=== PATIENT | male | born 1945 | race Caucasian/White ===

== ENCOUNTER → 2018-07-02 | Outpatient (CLI) | payer OTHER | END | disposition home or self-care (01) | LOC: RAD 11:31 | PROVIDERS: ATTEND Family Medicine | DX: I70.292 Other atherosclerosis of native arteries of extremities, left leg (principal); M25.462 Effusion, left knee ==

== ENCOUNTER 2018-12-23 19:24 | Inpatient (IN) | payer OTHER, MEDICARE ==
[~2018-12-23] VITALS: Ht 177.8 cm; Wt 90.0 kg
[2018-12-25 12:28] VITALS: BP 144/78
== END 2018-12-25 16:20 | disposition home or self-care (01) | DRG 683 ==
LOC: ED 21:51 → EDIP 21:52 → 3NE 23:20 → DCLOUNGE 12-25 16:06
PROVIDERS: ADMIT Family Medicine; ATTEND Family Medicine
DX: N17.9 Acute kidney failure, unspecified (principal); K57.32 Diverticulitis of large intestine without perforation or abscess without bleeding; E78.00 Pure hypercholesterolemia, unspecified; E78.5 Hyperlipidemia, unspecified; E86.0 Dehydration; J44.9 Chronic obstructive pulmonary disease, unspecified; J84.10 Pulmonary fibrosis, unspecified; M10.9 Gout, unspecified; N18.3 Chronic kidney disease, stage 3 (moderate); I13.10 Hypertensive heart and chronic kidney disease without heart failure, with stage 1 through stage 4 chronic kidney disease, or unspecified chronic kidney disease; Z86.73 Personal history of transient ischemic attack (TIA), and cerebral infarction without residual deficits; I25.2 Old myocardial infarction; Z86.79 Personal history of other diseases of the circulatory system; Z87.891 Personal history of nicotine dependence; Z95.1 Presence of aortocoronary bypass graft; Z88.8 Allergy status to other drugs, medicaments and biological substances
CPT/HCPCS: 36415; 74176; 80048; 80053; 81003; 82570; 83690; 83735; 84100; 84300; 85025; 96365; 96375; G0378; J0696; J1644; J2405; J2270; J7030

== ENCOUNTER 2019-07-20 06:50 | Inpatient (IN) | payer MEDICARE, OTHER ==
[~2019-07-20] VITALS: Ht 180.3 cm; Wt 82.0 kg
[~2019-07-20 06:50] MED LIST: ALLO100T30 PO; AMLO10TA8 PO; ASPI-496 PO; CIPR500T87 PO; CLON0.1T22 PO; COLC0.6T37 PO; FENO145T19 PO; FURO40TA6 PO; METO-99 PO; METR500T PO; ONDA4TAB7 PO; ROSU10TA2 PO; ROSU40TA PO
--- NOTE | 2019-07-20 07:05 | NUR ---
PT C/O RESPIRATORY SYMPTOMS WITH WORK OF BREAKING, MASK IN PLACE ON PT PRIOR TO TRIAGE BUT NOT WEARING MASK. PT BROUGHT BACK TO TRIAGE AND EKG DONE IMMEDIATELY. INSTRUCTED TO STAY IN LOBBY SINCE PT HAS RESPIRATORY SYMPTOMS. OF PT CONCERNED ABOUT INABILITY OF PT TO COMMUNICATE WITH HX OF STROKES. PT ABLE TO COMMUNICATE ANSWERS TO QUESTIONS OF TRIAGE IF PROMPTED WITH LOUD VOICES. NOT ALLOWED BACK DUE TO ISOLATION OF PATIENTS WITH RESPIRATORY SYMPTOMS.
[2019-07-20] MEDS ORDERED: ASPIRIN 81 MG TABLET CHEW PO ONE (07:30)
[2019-07-20] MEDS ORDERED: ALBUTEROL/IPRATROPIUM 2.5MG/0.5MG, 3 ML NPPB ONE (07:30)
[2019-07-20] MEDS ORDERED: SODIUM CHLORIDE FLUSH 10ML SYR IVF ONE (07:30)
--- NOTE | 2019-07-20 07:30 | NUR ---
PT TACHIPNIC, SHALLOW BREATHING. ABLE TO SPEAK IN FULL SENTENCES. STRUGGLES WITH WORDS AND HAS DIFFICULTY ANSWERING SOME QUESTIONS.
[2019-07-20 07:37] LABS: MEAN CORPUSCULAR HEMOGLOBIN 34.5 pg (27.5-34.5); MEAN CORPUSCULAR HGB CONC 33.1 g/dL (33.2-36.2); MEAN CORPUSCULAR VOLUME 104.1 fL (81-97); MEAN PLATELET VOLUME 9.2 fL (7.4-10.4); PLATELET COUNT 267 x10^3/uL (130-400); RED BLOOD COUNT 4.02 x10^6/uL (4.38-5.82); RED CELL DISTRIBUTION WIDTH 14.9 % (9.4-14.8)
[2019-07-20 07:46] LABS: ALANINE AMINOTRANSFERASE 19 U/L (12-78); ALBUMIN 3.2 g/dL (3.4-5.0); ANION GAP 9 mmol/L (5-15); CHLORIDE 111 mmol/L (98-107); CREATININE 2.53 mg/dL (0.7-1.3)
[2019-07-20 07:51] LABS: ALKALINE PHOSPHATASE 59 U/L (45-117); BILIRUBIN,TOTAL 0.9 mg/dL (0.2-1.0); INTERNATIONAL NORMALIZED RATIO 0.99 (0.93-1.1); PROTHROMBIN TIME 10.5 Seconds (9.6-11.5); TOTAL PROTEIN 7.9 g/dL (6.4-8.2)
[2019-07-20 07:53] LABS: BASOPHILS # (AUTO) 0.06 x10^3/uL (0-0.1); BASOPHILS % (AUTO) 0 % (0-1); EOSINOPHILS # (AUTO) 0.21 x10^3/uL (0-0.4); EOSINOPHILS % (AUTO) 1 % (1-7); LYMPHOCYTES # (AUTO) 0.84 x10^3/uL (1-3.4); LYMPHOCYTES % (AUTO) 5 % (22-44); MD SCAN; MONOCYTES # (AUTO) 1.46 x10^3/uL (0.2-0.8); MONOCYTES % (AUTO) 8 % (2-9); NEUTROPHILS # (AUTO) 15.42 x10^3/uL (1.8-6.8); NEUTROPHILS % (AUTO) 86 % (42-75)
[2019-07-20] MEDS ORDERED: ASPIRIN 81 MG TABLET CHEW ONE (07:55)
[2019-07-20 07:56] LABS: TROPONIN I 0.697 ng/mL (0.000-0.045)
[2019-07-20] MEDS ORDERED: FUROSEMIDE 40 MG/4 ML IV ONE (08:30)
[2019-07-20] MEDS ORDERED: AZITHROMYCIN 500 MG in SODIUM CHLORIDE 0.9% 250 ML IVPB ONE (08:30)
[2019-07-20] MEDS ORDERED: CEFTRIAXONE PMX 1GM/50ML 50 ML IVPB ONE (08:30)
[2019-07-20] MEDS ORDERED: CEFTRIAXONE PMX 1GM/50ML 50 ML ONE (08:44)
--- NOTE | 2019-07-20 08:45 | NUR ---
AT BEDSIDE. AWARE OF INTENTION TO ADMIT. CONTINUE TO MONITOR PT
[2019-07-20] MEDS ORDERED: FUROSEMIDE 40 MG/4 ML ONE (08:51)
--- NOTE | 2019-07-20 09:00 | NUR ---
PT DISPLAYS SOB AND INCREASE IN HR WHEN UOB TO STAND AT GURNEY AND USE URINAL. SOB AND HR DECREASE AFTER BACK AT REST IN GURNEY
[2019-07-20] MEDS ORDERED: CLON0.1T22 PO (09:20)
--- NOTE | 2019-07-20 10:16 | NUR ---
HOSPITALIST AT BEDSIDE.
[2019-07-20] MEDS ORDERED: DOCUSATE 100 MG CAPSULE PO PRN (10:30)
[2019-07-20] MEDS ORDERED: ONDANSETRON 2MG/ML, 2ML IVPush PRN (10:30)
[2019-07-20] MEDS ORDERED: HEPARIN 5,000 UNITS/ML, 1ML SQ SCH (10:30)
[2019-07-20] MEDS ORDERED: NITROGLYCERIN 0.4 MG BOTTLE (25 TABS) SL PRN (10:30)
[2019-07-20] MEDS ORDERED: morphine SULFATE 10 MG/ML, 1ML IVPush PRN (10:30)
[2019-07-20] MEDS ORDERED: POLYETHYLENE GLYCOL 17 GM PACKET PO PRN (10:30)
[2019-07-20] MEDS ORDERED: ONDANSETRON ODT 4 MG PO PRN (10:30)
[2019-07-20] MEDS: CEFTRIAXONE PMX 1GM/50ML 50 ML IV SCH (10:37)
[2019-07-20] MEDS ORDERED: METOPROLOL TARTRATE 50 MG TAB ONE (10:51)
[2019-07-20] MEDS ORDERED: HEPARIN 5,000 UNITS/ML, 1ML ONE (10:51)
[2019-07-20] MEDS ORDERED: AMLODIPINE 5 MG TABLET ONE (10:51)
[2019-07-20] MEDS: METOPROLOL TARTRATE 100 MG TAB PO SCH ×2 (10:54→20:35)
[2019-07-20] MEDS: AMLODIPINE 10 MG TAB PO SCH (10:55)
--- NOTE | 2019-07-20 11:02 | NUR ---
BRIA [phone]
--- NOTE | 2019-07-20 11:07 | NUR ---
REPORT TO JIM SQUIRES PT TO BE TRANSPORTED TO FLOOR.
[2019-07-20] MEDS: ALLOPURINOL 100 MG TABLET PO SCH (11:20)
--- NOTE | 2019-07-20 11:29 | NUR ---
PT DIURESED 800 ML URINE SINCE GIVEN LASIX. TO FLOOR VIA GURNEY
[2019-07-20 11:51] VITALS: BP 141/88
[2019-07-20 12:08] VITALS: BP 141/88
[2019-07-20] MEDS ORDERED: AMLO10TA8 PO (12:34)
[2019-07-20] MEDS ORDERED: HEPARIN 5,000 UNITS/ML, 1ML IV ONE (15:00)
[2019-07-20] MEDS: HEPARIN 25,000 UNITS/250ML PMX 250 ML IV PRN (15:14)
[2019-07-20] MEDS: FUROSEMIDE 40 MG/4 ML IV SCH (18:22)
[2019-07-20 19:44] VITALS: BP 140/83
[2019-07-20] MEDS: (Rosuvastatin Calcium** (Crestor**) 40 MG) PO SCH (20:35)
[2019-07-20] MEDS: HEPARIN 5,000 UNITS/ML, 1ML IV PRN (23:55)
[2019-07-21 00:34] VITALS: BP 146/80
[2019-07-21] MEDS: ACETAMINOPHEN 325 MG TABLET PO PRN ×2 (04:58→22:02)
[2019-07-21 05:18] LABS: ANION GAP 8 mmol/L (5-15); CALCIUM 8.5 mg/dL (8.5-10.1); CHLORIDE 107 mmol/L (98-107); CREATININE 3.04 mg/dL (0.7-1.3)
[2019-07-21 06:08] LABS: BASOPHILS % (AUTO) 0 % (0-1); EOSINOPHILS # (AUTO) 0.56 x10^3/uL (0-0.4); EOSINOPHILS % (AUTO) 4 % (1-7); LYMPHOCYTES # (AUTO) 1.35 x10^3/uL (1-3.4); LYMPHOCYTES % (AUTO) 10 % (22-44); MD SCAN; MEAN CORPUSCULAR HEMOGLOBIN 34.7 pg (27.5-34.5); MEAN CORPUSCULAR HGB CONC 33.7 g/dL (33.2-36.2); MEAN CORPUSCULAR VOLUME 103.1 fL (81-97); MEAN PLATELET VOLUME 9.8 fL (7.4-10.4); MONOCYTES # (AUTO) 1.07 x10^3/uL (0.2-0.8); MONOCYTES % (AUTO) 8 % (2-9); NEUTROPHILS # (AUTO) 10.61 x10^3/uL (1.8-6.8); NEUTROPHILS % (AUTO) 78 % (42-75); PLATELET COUNT 245 x10^3/uL (130-400); RED BLOOD COUNT 3.39 x10^6/uL (4.38-5.82); RED CELL DISTRIBUTION WIDTH 14.9 % (9.4-14.8)
[2019-07-21 07:14] VITALS: BP 156/93
[2019-07-21] MEDS: ASPIRIN 81 MG TABLET EC PO SCH (08:03)
[2019-07-21] MEDS: FUROSEMIDE 40 MG/4 ML IV SCH ×2 (08:03→17:17)
[2019-07-21] MEDS: AMLODIPINE 10 MG TAB PO SCH (08:03)
[2019-07-21] MEDS: FENOFIBRATE 145 MG TABLET PO SCH (08:03)
[2019-07-21] MEDS: ALLOPURINOL 100 MG TABLET PO SCH (08:04)
[2019-07-21] MEDS ORDERED: METOPROLOL TARTRATE 50 MG TAB PO SCH (09:00)
[2019-07-21] MEDS ORDERED: AZITHROMYCIN 500 MG TABLET PO SCH (09:00)
[2019-07-21] MEDS ORDERED: CLOPIDOGREL 300 MG TABLET PO ONE (10:30)
[2019-07-21] MEDS: CEFTRIAXONE PMX 1GM/50ML 50 ML IV SCH (11:58)
[2019-07-21] MEDS: ISOSORBIDE DINITRATE 10 MG TABLET PO SCH ×3 (11:58→22:03)
[2019-07-21] MEDS: HEPARIN 5,000 UNITS/ML, 1ML IV PRN ×2 (13:14→22:03)
[2019-07-21] MEDS: HEPARIN 25,000 UNITS/250ML PMX 250 ML IV PRN (13:16)
[2019-07-21 13:48] VITALS: BP 121/62
[2019-07-21] MEDS: CARVEDILOL 12.5 MG TABLET PO SCH (17:17)
[2019-07-21 19:39] VITALS: BP 115/71
[2019-07-21] MEDS: (Rosuvastatin Calcium** (Crestor**) 40 MG) PO SCH (21:00)
[2019-07-21 21:58] VITALS: BP 136/75
[2019-07-22 00:26] VITALS: BP 114/67
[2019-07-22 04:32] LABS: BASOPHILS # (AUTO) 0.08 x10^3/uL (0-0.1); BASOPHILS % (AUTO) 1 % (0-1); EOSINOPHILS # (AUTO) 0.65 x10^3/uL (0-0.4); EOSINOPHILS % (AUTO) 6 % (1-7); LYMPHOCYTES # (AUTO) 1.32 x10^3/uL (1-3.4); LYMPHOCYTES % (AUTO) 12 % (22-44); MD NO; MEAN CORPUSCULAR HGB CONC 32.9 g/dL (33.2-36.2); MEAN CORPUSCULAR VOLUME 103.2 fL (81-97); MEAN PLATELET VOLUME 10.1 fL (7.4-10.4); MONOCYTES # (AUTO) 1.21 x10^3/uL (0.2-0.8); MONOCYTES % (AUTO) 11 % (2-9); NEUTROPHILS # (AUTO) 7.98 x10^3/uL (1.8-6.8); NEUTROPHILS % (AUTO) 71 % (42-75); PLATELET COUNT 239 x10^3/uL (130-400); RED BLOOD COUNT 3.39 x10^6/uL (4.38-5.82); RED CELL DISTRIBUTION WIDTH 14.8 % (9.4-14.8)
[2019-07-22 04:40] LABS: ANION GAP 10 mmol/L (5-15); CALCIUM 8.2 mg/dL (8.5-10.1); CHLORIDE 103 mmol/L (98-107)
[2019-07-22 06:44] VITALS: BP 127/70
[2019-07-22] MEDS: FUROSEMIDE 40 MG/4 ML IV SCH (06:46)
[2019-07-22] MEDS: CARVEDILOL 12.5 MG TABLET PO SCH ×2 (06:46→17:59)
[2019-07-22] MEDS: ALLOPURINOL 100 MG TABLET PO SCH (08:53)
[2019-07-22] MEDS: FENOFIBRATE 145 MG TABLET PO SCH (08:53)
[2019-07-22] MEDS: ASPIRIN 81 MG TABLET EC PO SCH (08:53)
[2019-07-22] MEDS: CLOPIDOGREL 75 MG TABLET PO SCH (08:53)
[2019-07-22] MEDS: AMLODIPINE 10 MG TAB PO SCH (08:58)
[2019-07-22] MEDS: ISOSORBIDE DINITRATE 10 MG TABLET PO SCH ×3 (08:58→21:50)
[2019-07-22 09:50] VITALS: BP 125/68
[2019-07-22] MEDS: HEPARIN 25,000 UNITS/250ML PMX 250 ML IV PRN (10:26)
[2019-07-22 13:49] VITALS: BP 118/66
[2019-07-22 15:41] LABS: MICROSCOPIC NOT IND
[2019-07-22 15:44] LABS: CULTURE INDICATED? NO
[2019-07-22 15:57] LABS: CREATININE,URINE RANDOM 51.1 mg/dL
[2019-07-22] MEDS ORDERED: CARVEDILOL 6.25 MG TABLET PO ONE (18:00)
[2019-07-22 20:22] VITALS: BP 123/63
[2019-07-22] MEDS: (Rosuvastatin Calcium** (Crestor**) 40 MG) PO SCH (21:00)
[2019-07-22 21:49] VITALS: BP 155/79
[2019-07-22] MEDS: ACETAMINOPHEN 325 MG TABLET PO PRN (21:49)
[2019-07-23 03:45] VITALS: BP 122/68
[2019-07-23] MEDS: CARVEDILOL 12.5 MG TABLET PO SCH ×2 (05:25→17:44)
[2019-07-23 05:26] VITALS: BP 127/70
[2019-07-23 05:42] LABS: BASOPHILS # (AUTO) 0.09 x10^3/uL (0-0.1); BASOPHILS % (AUTO) 1 % (0-1); EOSINOPHILS % (AUTO) 8 % (1-7); LYMPHOCYTES # (AUTO) 0.88 x10^3/uL (1-3.4); LYMPHOCYTES % (AUTO) 10 % (22-44); MD NO; MEAN CORPUSCULAR HEMOGLOBIN 34.2 pg (27.5-34.5); MEAN CORPUSCULAR HGB CONC 33.4 g/dL (33.2-36.2); MEAN CORPUSCULAR VOLUME 102.4 fL (81-97); MEAN PLATELET VOLUME 9.7 fL (7.4-10.4); MONOCYTES % (AUTO) 11 % (2-9); NEUTROPHILS # (AUTO) 5.92 x10^3/uL (1.8-6.8); NEUTROPHILS % (AUTO) 70 % (42-75); PLATELET COUNT 259 x10^3/uL (130-400); RED BLOOD COUNT 3.44 x10^6/uL (4.38-5.82); RED CELL DISTRIBUTION WIDTH 14.7 % (9.4-14.8)
[2019-07-23 05:51] LABS: ALBUMIN 2.6 g/dL (3.4-5.0); ANION GAP 11 mmol/L (5-15); CALCIUM 8.6 mg/dL (8.5-10.1); CHLORIDE 105 mmol/L (98-107); CREATININE 3.49 mg/dL (0.7-1.3); IRON LEVEL 28 mcg/dL (65-175)
[2019-07-23 05:55] LABS: % IRON SATURATION 11 % (20-55); TOTAL IRON BINDING CAPACITY 257 mcg/dL (250-450)
[2019-07-23 07:26] VITALS: BP 120/72
[2019-07-23] MEDS: ASPIRIN 81 MG TABLET EC PO SCH (08:47)
[2019-07-23] MEDS: ISOSORBIDE DINITRATE 10 MG TABLET PO SCH ×3 (08:47→20:55)
[2019-07-23] MEDS: CLOPIDOGREL 75 MG TABLET PO SCH (08:48)
[2019-07-23] MEDS: FENOFIBRATE 145 MG TABLET PO SCH (08:48)
[2019-07-23] MEDS: AMLODIPINE 10 MG TAB PO SCH (08:48)
[2019-07-23] MEDS: ALLOPURINOL 100 MG TABLET PO SCH (08:48)
[2019-07-23] MEDS: ACETAMINOPHEN 325 MG TABLET PO PRN ×2 (09:42→22:05)
[2019-07-23 12:30] VITALS: BP 92/57
[2019-07-23 13:01] VITALS: BP 147/70
[2019-07-23] MEDS ORDERED: ERGOCALCIFEROL 50,000 UNIT CAPSULE PO SCH (13:30)
[2019-07-23] MEDS: FERROUS SULFATE 325 MG TABLET PO SCH ×2 (13:30→17:44)
[2019-07-23] MEDS: HEPARIN 5,000 UNITS/ML, 1ML SQ SCH ×2 (15:17→23:16)
[2019-07-23 20:20] VITALS: BP 154/69
[2019-07-23] MEDS: (Rosuvastatin Calcium** (Crestor**) 40 MG) PO SCH (20:56)
[2019-07-24 01:40] VITALS: BP 134/81
[2019-07-24 05:37] LABS: BASOPHILS # (AUTO) 0.01 x10^3/uL (0-0.1); BASOPHILS % (AUTO) 0 % (0-1); EOSINOPHILS # (AUTO) 0.67 x10^3/uL (0-0.4); EOSINOPHILS % (AUTO) 8 % (1-7); LYMPHOCYTES # (AUTO) 0.99 x10^3/uL (1-3.4); LYMPHOCYTES % (AUTO) 13 % (22-44); MD NO; MEAN CORPUSCULAR HEMOGLOBIN 33.7 pg (27.5-34.5); MEAN CORPUSCULAR HGB CONC 33.1 g/dL (33.2-36.2); MEAN CORPUSCULAR VOLUME 101.7 fL (81-97); MEAN PLATELET VOLUME 10.3 fL (7.4-10.4); MONOCYTES # (AUTO) 0.85 x10^3/uL (0.2-0.8); MONOCYTES % (AUTO) 11 % (2-9); NEUTROPHILS # (AUTO) 5.42 x10^3/uL (1.8-6.8); NEUTROPHILS % (AUTO) 68 % (42-75); PLATELET COUNT 263 x10^3/uL (130-400); RED BLOOD COUNT 3.43 x10^6/uL (4.38-5.82); RED CELL DISTRIBUTION WIDTH 14.7 % (9.4-14.8)
[2019-07-24] MEDS: CARVEDILOL 12.5 MG TABLET PO SCH ×2 (05:37→18:32)
[2019-07-24 05:50] LABS: ALBUMIN 2.6 g/dL (3.4-5.0); ANION GAP 7 mmol/L (5-15); CHLORIDE 107 mmol/L (98-107)
[2019-07-24 05:52] LABS: CREATININE 3.11 mg/dL (0.7-1.3)
[2019-07-24 07:25] VITALS: BP 155/77
[2019-07-24] MEDS: AMLODIPINE 10 MG TAB PO SCH (07:55)
[2019-07-24] MEDS: ASPIRIN 81 MG TABLET EC PO SCH (07:55)
[2019-07-24] MEDS: HEPARIN 5,000 UNITS/ML, 1ML SQ SCH ×3 (07:55→23:01)
[2019-07-24] MEDS: FENOFIBRATE 145 MG TABLET PO SCH (07:55)
[2019-07-24] MEDS: CLOPIDOGREL 75 MG TABLET PO SCH (07:55)
[2019-07-24] MEDS: ALLOPURINOL 100 MG TABLET PO SCH (07:55)
[2019-07-24] MEDS: ISOSORBIDE DINITRATE 10 MG TABLET PO SCH ×3 (07:55→20:18)
[2019-07-24] MEDS ORDERED: REGADENOSON 0.4 MG/5 ML SYRINGE ONE (09:05)
[2019-07-24 13:55] VITALS: BP 158/84
[2019-07-24] MEDS: FERROUS SULFATE 325 MG TABLET PO SCH (17:03)
[2019-07-24 20:10] VITALS: BP_SYST 160; BP_SYST 166; BP_DIAS 80; BP_DIAS 84
[2019-07-24] MEDS: ACETAMINOPHEN 325 MG TABLET PO PRN (20:18)
[2019-07-24] MEDS: ATORVASTATIN 80 MG TABLET PO SCH (20:18)
[2019-07-25] VITALS (7 sets, daily range): BP systolic 137–160; BP diastolic 72–79
[2019-07-25 05:10] LABS: BASOPHILS # (AUTO) 0.02 x10^3/uL (0-0.1); BASOPHILS % (AUTO) 0 % (0-1); EOSINOPHILS # (AUTO) 0.41 x10^3/uL (0-0.4); EOSINOPHILS % (AUTO) 5 % (1-7); LYMPHOCYTES % (AUTO) 9 % (22-44); MD NO; MEAN CORPUSCULAR HEMOGLOBIN 33.5 pg (27.5-34.5); MEAN CORPUSCULAR HGB CONC 32.7 g/dL (33.2-36.2); MEAN CORPUSCULAR VOLUME 102.3 fL (81-97); MEAN PLATELET VOLUME 10.1 fL (7.4-10.4); MONOCYTES # (AUTO) 0.78 x10^3/uL (0.2-0.8); MONOCYTES % (AUTO) 9 % (2-9); NEUTROPHILS # (AUTO) 6.41 x10^3/uL (1.8-6.8); NEUTROPHILS % (AUTO) 77 % (42-75); PLATELET COUNT 277 x10^3/uL (130-400); RED BLOOD COUNT 3.45 x10^6/uL (4.38-5.82); RED CELL DISTRIBUTION WIDTH 14.5 % (9.4-14.8)
[2019-07-25 05:11] LABS: ALBUMIN 2.6 g/dL (3.4-5.0); ANION GAP 7 mmol/L (5-15); CHLORIDE 107 mmol/L (98-107)
[2019-07-25 05:14] LABS: CREATININE 2.76 mg/dL (0.7-1.3)
[2019-07-25] MEDS: HEPARIN 5,000 UNITS/ML, 1ML SQ SCH ×3 (06:18→21:55)
[2019-07-25] MEDS: CARVEDILOL 12.5 MG TABLET PO SCH ×2 (06:18→17:45)
[2019-07-25] MEDS: CLOPIDOGREL 75 MG TABLET PO SCH (09:21)
[2019-07-25] MEDS: AMLODIPINE 10 MG TAB PO SCH (09:21)
[2019-07-25] MEDS: ALLOPURINOL 100 MG TABLET PO SCH (09:21)
[2019-07-25] MEDS: ASPIRIN 81 MG TABLET EC PO SCH (09:21)
[2019-07-25] MEDS: ISOSORBIDE DINITRATE 10 MG TABLET PO SCH ×3 (09:21→21:54)
[2019-07-25] MEDS: FENOFIBRATE 145 MG TABLET PO SCH (09:22)
[2019-07-25] MEDS: FERROUS SULFATE 325 MG TABLET PO SCH (15:51)
[2019-07-25] MEDS: ACETAMINOPHEN 325 MG TABLET PO PRN ×2 (17:45→23:28)
[2019-07-25] MEDS: ATORVASTATIN 80 MG TABLET PO SCH (21:54)
[2019-07-26] VITALS: BP_SYST 137; BP_SYST 144; BP_DIAS 77; BP_DIAS 88
[2019-07-26 05:07] LABS: ALBUMIN 2.5 g/dL (3.4-5.0); ANION GAP 8 mmol/L (5-15); CALCIUM 9.1 mg/dL (8.5-10.1); CHLORIDE 109 mmol/L (98-107)
[2019-07-26 05:08] LABS: CREATININE 2.63 mg/dL (0.7-1.3)
[2019-07-26 05:35] VITALS: BP 137/74
[2019-07-26] MEDS: CARVEDILOL 12.5 MG TABLET PO SCH (05:38)
[2019-07-26] MEDS: HEPARIN 5,000 UNITS/ML, 1ML SQ SCH ×2 (05:39→15:02)
[2019-07-26 07:05] VITALS: BP 130/66
[2019-07-26] MEDS: AMLODIPINE 10 MG TAB PO SCH (08:21)
[2019-07-26] MEDS: ASPIRIN 81 MG TABLET EC PO SCH (08:21)
[2019-07-26] MEDS: CLOPIDOGREL 75 MG TABLET PO SCH (08:21)
[2019-07-26] MEDS: FENOFIBRATE 145 MG TABLET PO SCH (08:21)
[2019-07-26] MEDS: ALLOPURINOL 100 MG TABLET PO SCH (08:21)
[2019-07-26] MEDS: ISOSORBIDE DINITRATE 10 MG TABLET PO SCH ×2 (08:22→16:39)
[2019-07-26] MEDS ORDERED: CLOP75TA PO (09:26)
[2019-07-26] MEDS ORDERED: FERR-51 PO (09:26)
[2019-07-26] MEDS ORDERED: NITR0.4T28 SL (09:26)
[2019-07-26] MEDS ORDERED: ISOS10TA2 PO (09:26)
[2019-07-26] MEDS ORDERED: HYDR-3341 PO (09:26)
[2019-07-26] MEDS ORDERED: CARV12.52 PO (09:26)
[2019-07-26] MEDS ORDERED: ERGO500017 PO (09:26)
[2019-07-26] MEDS ORDERED: SODIUM BICARBONATE 650 MG TABLET PO SCH (11:00)
[2019-07-26 13:40] VITALS: BP 143/71
[2019-07-26] MEDS: FERROUS SULFATE 325 MG TABLET PO SCH (16:37)
== END 2019-07-26 16:59 | disposition home or self-care (01) | DRG 871 ==
LOC: ED 07:35 → EDIP 09:16 → 5SO 11:26
PROVIDERS: ADMIT Family Medicine; ATTEND Family Medicine
DX: A41.9 Sepsis, unspecified organism (principal); I21.3 ST elevation (STEMI) myocardial infarction of unspecified site; I50.21 Acute systolic (congestive) heart failure; J18.9 Pneumonia, unspecified organism; J96.21 Acute and chronic respiratory failure with hypoxia; E87.1 Hypo-osmolality and hyponatremia; E87.2 Acidosis; I13.0 Hypertensive heart and chronic kidney disease with heart failure and stage 1 through stage 4 chronic kidney disease, or unspecified chronic kidney disease; J44.0 Chronic obstructive pulmonary disease with (acute) lower respiratory infection; N17.9 Acute kidney failure, unspecified; D50.9 Iron deficiency anemia, unspecified; D53.9 Nutritional anemia, unspecified; E78.00 Pure hypercholesterolemia, unspecified; E78.5 Hyperlipidemia, unspecified; E86.0 Dehydration; I08.0 Rheumatic disorders of both mitral and aortic valves; Z88.8 Allergy status to other drugs, medicaments and biological substances; I69.320 Aphasia following cerebral infarction; I71.4 Abdominal aortic aneurysm, without rupture; I73.9 Peripheral vascular disease, unspecified; N18.3 Chronic kidney disease, stage 3 (moderate); M10.9 Gout, unspecified; I25.119 Atherosclerotic heart disease of native coronary artery with unspecified angina pectoris; Z86.79 Personal history of other diseases of the circulatory system; Z87.11 Personal history of peptic ulcer disease; Z87.891 Personal history of nicotine dependence; Z95.1 Presence of aortocoronary bypass graft
CPT/HCPCS: 36415; 36600; 71045; 76770; 78452; 80048; 80053; 80069; 81003; 82043; 82306; 82570; 82728; 82803; 83540; 83550; 83605; 83735; 83880; 83970; 84145; 84156; 84484; 84550; 85025; 85520; 85610; 85730; 87040; 93005; 93017; 93306; 96374; 96375; 99291; G0378; J0456; J0696; J1644; J1940; J2785; A9502; C9898; J7050

== ENCOUNTER 2020-03-05 17:24 | Inpatient (IN) | payer OTHER ==
[~2020-03-05] VITALS: Ht 177.8 cm; Wt 79.5 kg
[~2020-03-05 17:24] MED LIST changes: +AMLO-211 PO; -AMLO10TA8 PO; +CARV12.52 PO; +CLOP75TA PO; +ERGO500017 PO; +FERR-51 PO; +HYDR-3341 PO; +ISOS10TA2 PO; +NITR0.4T28 SL
[2020-03-05] MEDS ORDERED: ONDANSETRON 2MG/ML, 2ML ONE (18:27)
[2020-03-05] MEDS ORDERED: MORPHINE SULFATE 4 MG/ML, 1ML ONE ×2 (18:28→20:18)
[2020-03-05] MEDS: MORPHINE SULFATE 4 MG/ML, 1ML IVPush PRN ×2 (18:29→20:21)
[2020-03-05] MEDS ORDERED: ONDANSETRON 2MG/ML, 2ML IVPush ONE (18:30)
[2020-03-05 18:34] LABS: BASOPHILS % (AUTO) 1 % (0-1); EOSINOPHILS % (AUTO) 1 % (1-7); LYMPHOCYTES % (AUTO) 6 % (22-44); MEAN CORPUSCULAR HEMOGLOBIN 33.4 pg (27.5-34.5); MEAN CORPUSCULAR HGB CONC 31.8 g/dL (33.2-36.2); MEAN PLATELET VOLUME 9.8 fL (7.4-10.4); MONOCYTES % (AUTO) 7 % (2-9); NEUTROPHILS % (AUTO) 86 % (42-75); PLATELET COUNT 254 x10^3/uL (130-400); RED BLOOD COUNT 3.62 x10^6/uL (4.38-5.82); RED CELL DISTRIBUTION WIDTH 14.1 % (9.4-14.8)
[2020-03-05 18:36] LABS: MD NO
[2020-03-05 18:42] LABS: ALANINE AMINOTRANSFERASE 122 U/L (12-78); ALBUMIN 3.6 g/dL (3.4-5.0); ANION GAP 5 mmol/L (5-15); CALCIUM 9.1 mg/dL (8.5-10.1); CHLORIDE 108 mmol/L (98-107); CREATININE 3.25 mg/dL (0.7-1.3)
[2020-03-05 18:44] LABS: ALKALINE PHOSPHATASE 66 U/L (45-117); BILIRUBIN,TOTAL 2.1 mg/dL (0.2-1.0)
[2020-03-05] MEDS ORDERED: SODIUM CHLORIDE FLUSH 10ML SYR IVF ONE (19:00)
[2020-03-05] MEDS ORDERED: SODIUM CHLORIDE 0.9% 1,000ML IVBOLUS ONE (19:00)
--- NOTE | 2020-03-05 19:39 | NUR ---
PT TO CT
--- NOTE | 2020-03-05 20:29 | NUR ---
TASK RN: PT MEDICATED PER EMAR FOR CONTINUED PAIN, 02/13. FAMILY AT BEDSIDE. BP/SPO2/ECG MONITORING IN PLACE. SINUS ILANA ON MONITOR, 50'S. BP STABLE. PT AWARE OF NEED FOR UA. URINAL PROVIDED. REPORTS HE WILL TRY WHEN PAIN IS IMPROVED.
[2020-03-05] MEDS ORDERED: HYDROmorphone 1 MG/ML, 1ML INJ ONE (21:16)
[2020-03-05] MEDS: HYDROmorphone 2 MG/ML, 1ML IVPush PRN ×2 (21:18→21:39)
[2020-03-05] MEDS ORDERED: SODIUM CHLORIDE FLUSH 10ML SYR IVF PRN (21:30)
[2020-03-05 21:44] LABS: MICROSCOPIC AUTO
[2020-03-05] MEDS ORDERED: DOCUSATE 100 MG CAPSULE PO PRN (22:00)
[2020-03-05] MEDS ORDERED: OXYcodone IR 5MG TABLET PO PRN (22:00)
[2020-03-05] MEDS ORDERED: PROMETHAZINE 25 MG/ML, 1ML IM PRN (22:00)
[2020-03-05] MEDS ORDERED: ONDANSETRON 2MG/ML, 2ML IVPush PRN (22:00)
[2020-03-05] MEDS ORDERED: LABETALOL 5MG/ML, 20ML IVPush PRN (22:00)
[2020-03-05] MEDS ORDERED: ONDANSETRON ODT 4 MG PO PRN (22:00)
[2020-03-05] MEDS ORDERED: NITROGLYCERIN SINGLE TAB 0.4 MG SL PRN (22:00)
[2020-03-05] MEDS ORDERED: POLYETHYLENE GLYCOL 17 GM PACKET PO PRN (22:00)
[2020-03-05 22:21] LABS: FREE T4 (FREE THYROXINE) 0.96 ng/dL (0.76-1.46)
--- NOTE | 2020-03-05 22:28 | NUR ---
contact [facility]- [phone]
[2020-03-05 22:47] VITALS: BP 164/75
[2020-03-05] MEDS: LACTATED RINGERS 1,000 ML IV SCH (22:56)
[2020-03-05] MEDS: HEPARIN 5,000 UNITS/ML, 1ML SQ SCH (23:09)
[2020-03-05] MEDS: AMLODIPINE 10 MG TAB PO SCH (23:09)
[2020-03-06] VITALS (7 sets, daily range): BP systolic 101–173; BP diastolic 69–80
[2020-03-06] MEDS: morphine SULFATE 10 MG/ML, 1ML IVPush PRN ×5 (01:59→20:17)
[2020-03-06 05:30] LABS: BASOPHILS % (AUTO) 0 % (0-1); EOSINOPHILS % (AUTO) 0 % (1-7); LYMPHOCYTES % (AUTO) 3 % (22-44); MEAN CORPUSCULAR HEMOGLOBIN 33.8 pg (27.5-34.5); MEAN CORPUSCULAR HGB CONC 32.2 g/dL (33.2-36.2); MEAN PLATELET VOLUME 9.8 fL (7.4-10.4); MONOCYTES % (AUTO) 9 % (2-9); NEUTROPHILS % (AUTO) 88 % (42-75); PLATELET COUNT 203 x10^3/uL (130-400); RED BLOOD COUNT 3.41 x10^6/uL (4.38-5.82); RED CELL DISTRIBUTION WIDTH 14.1 % (9.4-14.8)
[2020-03-06 05:34] LABS: ALANINE AMINOTRANSFERASE 225 U/L (12-78); ALBUMIN 3.2 g/dL (3.4-5.0); ANION GAP 4 mmol/L (5-15); CALCIUM 8.7 mg/dL (8.5-10.1); CHLORIDE 111 mmol/L (98-107); CHOLESTEROL, TOTAL 118 mg/dL (140-239); CREATININE 2.92 mg/dL (0.7-1.3)
[2020-03-06 05:36] LABS: ALKALINE PHOSPHATASE 82 U/L (45-117); BILIRUBIN,TOTAL 5.1 mg/dL (0.2-1.0); CHOL/HDL RATIO 7.4; HDL CHOL % 14 % (26-37); HDL CHOLESTEROL (DIRECT) 16 mg/dL (40-60); LDL CHOLESTEROL,CALCULATED 65 mg/dL (54-169); LDL/HDL RATIO 4.1 (0.5-3.0); TOTAL PROTEIN 7.1 g/dL (6.4-8.2); TRIGLYCERIDES 186 mg/dL (50-200); VLDL CHOLESTEROL 37 mg/dL (0-25)
[2020-03-06] MEDS: CARVEDILOL 12.5 MG TABLET PO SCH ×2 (05:52→18:41)
[2020-03-06] MEDS: LACTATED RINGERS 1,000 ML IV SCH ×2 (05:52→13:30)
[2020-03-06 05:57] LABS: MD NO
[2020-03-06] MEDS: ALLOPURINOL 100 MG TABLET PO SCH (08:53)
[2020-03-06] MEDS: HEPARIN 5,000 UNITS/ML, 1ML SQ SCH ×3 (08:56→23:00)
[2020-03-06] MEDS ORDERED: PIPERACILLIN/TAZO/PMX 2.25GM 50 ML IVPB SCH (15:30)
[2020-03-06] MEDS: PIPERACILLIN/TAZO/PMX 2.25GM 50 ML IVPB SCH ×2 (18:37→23:51)
[2020-03-06] MEDS: ISOSORBIDE DINITRATE 10 MG TABLET PO SCH ×2 (19:59→21:00)
[2020-03-06] MEDS: AMLODIPINE 10 MG TAB PO SCH (20:02)
[2020-03-06] MEDS: ATORVASTATIN 80 MG TABLET PO SCH (20:02)
[2020-03-07 00:06] VITALS: BP 134/71
[2020-03-07] MEDS: PIPERACILLIN/TAZO/PMX 2.25GM 50 ML IVPB SCH ×4 (06:20→23:30)
[2020-03-07] MEDS: CARVEDILOL 12.5 MG TABLET PO SCH ×2 (06:20→17:23)
[2020-03-07] MEDS: HEPARIN 5,000 UNITS/ML, 1ML SQ SCH (06:24)
[2020-03-07 06:25] VITALS: BP 137/70
[2020-03-07 07:13] VITALS: BP 128/68
[2020-03-07 08:03] LABS: MEAN CORPUSCULAR HEMOGLOBIN 34.2 pg (27.5-34.5); MEAN CORPUSCULAR HGB CONC 32.9 g/dL (33.2-36.2); MEAN PLATELET VOLUME 9.4 fL (7.4-10.4); PLATELET COUNT 169 x10^3/uL (130-400); RED CELL DISTRIBUTION WIDTH 14.2 % (9.4-14.8)
[2020-03-07 08:16] LABS: ALANINE AMINOTRANSFERASE 187 U/L (12-78); ALBUMIN 2.5 g/dL (3.4-5.0); ANION GAP 7 mmol/L (5-15); CALCIUM 8.3 mg/dL (8.5-10.1); CHLORIDE 111 mmol/L (98-107); CREATININE 2.97 mg/dL (0.7-1.3)
[2020-03-07 08:18] LABS: ALKALINE PHOSPHATASE 87 U/L (45-117); BILIRUBIN,TOTAL 1.4 mg/dL (0.2-1.0)
[2020-03-07 08:32] LABS: MD YES
[2020-03-07 08:33] LABS: BAND#(MANUAL) 1.76 x10^3/uL; BANDS%(MANUAL) 7 % (0-7); LYMPHS% (MANUAL) 2 % (22-44); MONOS% (MANUAL) 4 % (2-9); SEG#(MANUAL) 21.84 x10^3/uL (1.8-6.8); SEGS% (MANUAL) 87 % (42-75)
[2020-03-07 08:34] LABS: <PLATELET ESTIMATE> ADEQUATE; <PLT MORPHOLOGY> NORMAL PLT MORPH; ANISOCYTOSIS 1+
[2020-03-07] MEDS: ASPIRIN 81 MG TABLET EC PO SCH (10:14)
[2020-03-07] MEDS: ALLOPURINOL 100 MG TABLET PO SCH (10:14)
[2020-03-07] MEDS: ISOSORBIDE DINITRATE 10 MG TABLET PO SCH ×3 (10:15→22:02)
[2020-03-07] MEDS: FENOFIBRATE 145 MG TABLET PO SCH (10:15)
[2020-03-07 12:53] VITALS: BP 128/72
[2020-03-07 20:10] VITALS: BP 132/69
[2020-03-07] MEDS: ATORVASTATIN 80 MG TABLET PO SCH (22:01)
[2020-03-07] MEDS: AMLODIPINE 10 MG TAB PO SCH (22:02)
[2020-03-08 00:05] VITALS: BP 108/63
[2020-03-08] MEDS: PIPERACILLIN/TAZO/PMX 2.25GM 50 ML IVPB SCH ×4 (05:53→23:28)
[2020-03-08] MEDS: CARVEDILOL 12.5 MG TABLET PO SCH ×2 (05:54→17:33)
[2020-03-08 07:04] VITALS: BP 134/62
[2020-03-08] MEDS: ISOSORBIDE DINITRATE 10 MG TABLET PO SCH ×3 (09:00→20:36)
[2020-03-08] MEDS ORDERED: CHLORHEXIDINE 15 ML UDC ONE (09:09)
[2020-03-08] MEDS ORDERED: FENTANYL PF 100 MCG/2ML ONE (09:17)
[2020-03-08] MEDS ORDERED: PROMETHAZINE 25 MG SUPP PR PRN (09:30)
[2020-03-08] MEDS ORDERED: OXYcodone 5 MG/5 ML ORAL.SOL UDC PO PRN (09:30)
[2020-03-08] MEDS ORDERED: HYDROmorphone 1 MG/ML, 1ML INJ IVPush PRN (09:30)
[2020-03-08] MEDS ORDERED: ACETAMINOPHEN 325 MG TABLET PO PRN (09:30)
[2020-03-08] MEDS ORDERED: LABETALOL 5MG/ML, 20ML IV PRN (09:30)
[2020-03-08] MEDS ORDERED: PROMETHAZINE 25 MG/ML, 1ML IVPush PRN (09:30)
[2020-03-08] MEDS ORDERED: hydrALAzine 20 MG/ML, 1ML IV PRN (09:30)
[2020-03-08] MEDS ORDERED: ONDANSETRON 2MG/ML, 2ML IVPush PRN (09:30)
[2020-03-08] MEDS ORDERED: ROCURONIUM 10MG/ML,5ML ONE (10:05)
[2020-03-08] MEDS ORDERED: CEFAZOLIN 1,000 MG ONE (10:05)
[2020-03-08] MEDS ORDERED: DEXAMETHASONE 4 MG/ML, 1ML ONE (10:05)
[2020-03-08] MEDS ORDERED: ONDANSETRON 2MG/ML, 2ML ONE (10:05)
[2020-03-08] MEDS ORDERED: GLYCOPYRROLATE 0.2MG/1ML, 5ML ONE (10:05)
[2020-03-08] MEDS ORDERED: NEOSTIGMINE 1 MG/ML, 10ML ONE (10:05)
[2020-03-08] MEDS ORDERED: PROPOFOL 10 MG/ML, 20ML ONE (10:05)
[2020-03-08] MEDS ORDERED: SUCCINYLCHOLINE 20 MG/ML, 10ML ONE (10:05)
[2020-03-08] MEDS ORDERED: OMNIPAQUE 350 MG/ML, 50 ML BOTTLE ONE (10:22)
[2020-03-08] MEDS: ALLOPURINOL 100 MG TABLET PO SCH (11:43)
[2020-03-08] MEDS: ASPIRIN 81 MG TABLET EC PO SCH (11:43)
[2020-03-08] MEDS: FENOFIBRATE 145 MG TABLET PO SCH (11:43)
[2020-03-08 12:27] VITALS: BP 138/101
[2020-03-08 13:19] LABS: ANION GAP 8 mmol/L (5-15); CALCIUM 8.4 mg/dL (8.5-10.1); CHLORIDE 108 mmol/L (98-107); CREATININE 3.28 mg/dL (0.7-1.3)
[2020-03-08 13:20] LABS: ALANINE AMINOTRANSFERASE 113 U/L (12-78); ALBUMIN 2.3 g/dL (3.4-5.0)
[2020-03-08 13:22] LABS: ALKALINE PHOSPHATASE 79 U/L (45-117); BILIRUBIN,TOTAL 0.9 mg/dL (0.2-1.0); TOTAL PROTEIN 6.2 g/dL (6.4-8.2)
[2020-03-08 13:32] LABS: BASOPHILS % (AUTO) 0 % (0-1); EOSINOPHILS % (AUTO) 1 % (1-7); LYMPHOCYTES % (AUTO) 4 % (22-44); MEAN CORPUSCULAR HEMOGLOBIN 33.4 pg (27.5-34.5); MEAN CORPUSCULAR HGB CONC 31.9 g/dL (33.2-36.2); MEAN PLATELET VOLUME 10.4 fL (7.4-10.4); MONOCYTES % (AUTO) 5 % (2-9); NEUTROPHILS % (AUTO) 90 % (42-75); PLATELET COUNT 168 x10^3/uL (130-400); RED BLOOD COUNT 2.85 x10^6/uL (4.38-5.82); RED CELL DISTRIBUTION WIDTH 14.6 % (9.4-14.8)
[2020-03-08 14:10] LABS: MD SCAN
[2020-03-08 15:50] VITALS: BP 143/72
[2020-03-08] MEDS: SODIUM CHLORIDE 0.9% 1,000 ML IV SCH ×2 (15:51→23:34)
[2020-03-08 19:32] VITALS: BP 131/72
[2020-03-08] MEDS: ATORVASTATIN 80 MG TABLET PO SCH (20:36)
[2020-03-08] MEDS: AMLODIPINE 10 MG TAB PO SCH (20:36)
[2020-03-09 01:40] VITALS: BP 124/64
[2020-03-09] MEDS ORDERED: ATROPINE SYRINGE 0.1 MG/ML, 10ML ONE (05:00)
[2020-03-09] MEDS ORDERED: EPINEPHRINE SYRINGE 0.1 MG/ML, 10ML ONE ×2 (05:00→06:46)
[2020-03-09 05:07] LABS: BASOPHILS % (AUTO) 1 % (0-1); EOSINOPHILS % (AUTO) 4 % (1-7); LYMPHOCYTES % (AUTO) 4 % (22-44); MEAN CORPUSCULAR HEMOGLOBIN 33.5 pg (27.5-34.5); MEAN CORPUSCULAR HGB CONC 32.4 g/dL (33.2-36.2); MONOCYTES % (AUTO) 5 % (2-9); NEUTROPHILS % (AUTO) 86 % (42-75); PLATELET COUNT 175 x10^3/uL (130-400); RED BLOOD COUNT 2.78 x10^6/uL (4.38-5.82); RED CELL DISTRIBUTION WIDTH 14.2 % (9.4-14.8)
[2020-03-09 05:11] LABS: MD NO
[2020-03-09 05:19] LABS: ALANINE AMINOTRANSFERASE 91 U/L (12-78); ANION GAP 6 mmol/L (5-15); CALCIUM 8.1 mg/dL (8.5-10.1); CHLORIDE 110 mmol/L (98-107); CREATININE 3.09 mg/dL (0.7-1.3)
[2020-03-09 05:22] LABS: ALKALINE PHOSPHATASE 86 U/L (45-117); BILIRUBIN,TOTAL 0.9 mg/dL (0.2-1.0)
[2020-03-09] MEDS: PIPERACILLIN/TAZO/PMX 2.25GM 50 ML IVPB SCH ×4 (05:39→23:35)
[2020-03-09] MEDS: CARVEDILOL 12.5 MG TABLET PO SCH (05:41)
[2020-03-09 05:42] VITALS: BP 105/59
[2020-03-09 06:46] LABS: BASOPHILS % (AUTO) 0 % (0-1); EOSINOPHILS % (AUTO) 4 % (1-7); LYMPHOCYTES % (AUTO) 9 % (22-44); MEAN CORPUSCULAR HEMOGLOBIN 33.7 pg (27.5-34.5); MEAN CORPUSCULAR HGB CONC 31.2 g/dL (33.2-36.2); MEAN PLATELET VOLUME 10.2 fL (7.4-10.4); MONOCYTES % (AUTO) 5 % (2-9); NEUTROPHILS % (AUTO) 81 % (42-75); PLATELET COUNT 186 x10^3/uL (130-400)
[2020-03-09 06:47] LABS: MD NO
[2020-03-09 06:59] LABS: ALANINE AMINOTRANSFERASE 113 U/L (12-78); ALBUMIN 1.9 g/dL (3.4-5.0); ANION GAP 13 mmol/L (5-15); CALCIUM 7.9 mg/dL (8.5-10.1); CHLORIDE 109 mmol/L (98-107); CREATININE 3.42 mg/dL (0.7-1.3)
[2020-03-09] MEDS ORDERED: CODE BLUE RESPONSE XX ONE (07:00)
[2020-03-09 07:03] LABS: ALKALINE PHOSPHATASE 86 U/L (45-117); BILIRUBIN,TOTAL 0.8 mg/dL (0.2-1.0); TOTAL PROTEIN 5.7 g/dL (6.4-8.2); TROPONIN I 0.293 ng/mL (0.000-0.045)
[2020-03-09] MEDS ORDERED: DEXTROSE 4 GM TAB.CHEW PO PRN (07:30)
[2020-03-09] MEDS ORDERED: FENTANYL PF 100 MCG/2ML IVPush PRN (07:30)
[2020-03-09] MEDS ORDERED: NOREPINEPHRINE 8 MG in SODIUM CHLORIDE 0.9% 242 ML IV PRN (07:30)
[2020-03-09] MEDS ORDERED: PHARMACY MAY ADJ FOR RENAL FX MC SCH (07:30)
[2020-03-09] MEDS ORDERED: ONDANSETRON 2MG/ML, 2ML IV PRN (07:30)
[2020-03-09] MEDS ORDERED: LIDOCAINE-MPF 1%, 2ML ENDO PRN (07:30)
[2020-03-09] MEDS ORDERED: GLUCAGON 1 MG IM PRN (07:30)
[2020-03-09] MEDS ORDERED: DEXTROSE 50%, 50ML SYRINGE IVPush PRN (07:30)
[2020-03-09] MEDS: ISOSORBIDE DINITRATE 10 MG TABLET PO SCH (08:56)
[2020-03-09] MEDS: ALLOPURINOL 100 MG TABLET PO SCH (09:02)
[2020-03-09] MEDS: ASPIRIN 81 MG TABLET EC PO SCH (09:02)
[2020-03-09] MEDS: FENOFIBRATE 145 MG TABLET PO SCH (09:02)
[2020-03-09] MEDS: SODIUM CHLORIDE FLUSH 10ML SYR IVF SCH ×2 (09:03→20:51)
[2020-03-09 12:33] LABS: TROPONIN I 0.596 ng/mL (0.000-0.045)
[2020-03-09] MEDS ORDERED: SODIUM CHLORIDE 0.9%, 500ML IVBOLUS ONE (13:30)
[2020-03-09] MEDS ORDERED: OXYcodone IR 5MG TABLET PO PRN (14:00)
[2020-03-09] MEDS: PROPOFOL 100 ML IV PRN ×2 (14:03→20:52)
[2020-03-09] MEDS: ISOSORBIDE DINITRATE 10 MG TABLET NG SCH ×2 (16:00→19:52)
[2020-03-09] MEDS: HEPARIN 5,000 UNITS/ML, 1ML SQ SCH (17:06)
[2020-03-09] MEDS: CARVEDILOL 12.5 MG TABLET NG SCH (17:42)
[2020-03-09] MEDS: PANTOPRAZOLE 40 MG IV IVPush SCH (18:15)
[2020-03-09 18:56] LABS: TROPONIN I 0.995 ng/mL (0.000-0.045)
[2020-03-09] MEDS: AMLODIPINE 10 MG TAB NG SCH (19:53)
[2020-03-09] MEDS: ATORVASTATIN 80 MG TABLET NG SCH (20:51)
[2020-03-10] MEDS: HEPARIN 5,000 UNITS/ML, 1ML SQ SCH ×3 (01:29→17:27)
[2020-03-10] MEDS: PROPOFOL 100 ML IV PRN ×4 (03:04→20:06)
[2020-03-10 04:00] VITALS: BP 104/47
[2020-03-10 04:49] LABS: BASOPHILS % (AUTO) 0 % (0-1); EOSINOPHILS % (AUTO) 4 % (1-7); LYMPHOCYTES % (AUTO) 6 % (22-44); MEAN CORPUSCULAR HEMOGLOBIN 34.2 pg (27.5-34.5); MEAN CORPUSCULAR HGB CONC 32.9 g/dL (33.2-36.2); MEAN PLATELET VOLUME 10.5 fL (7.4-10.4); MONOCYTES % (AUTO) 9 % (2-9); NEUTROPHILS % (AUTO) 81 % (42-75); PLATELET COUNT 168 x10^3/uL (130-400); RED BLOOD COUNT 2.51 x10^6/uL (4.38-5.82); RED CELL DISTRIBUTION WIDTH 14.3 % (9.4-14.8)
[2020-03-10 04:50] LABS: MD NO
[2020-03-10 04:56] LABS: ANION GAP 11 mmol/L (5-15); CALCIUM 8.2 mg/dL (8.5-10.1); CHLORIDE 113 mmol/L (98-107)
[2020-03-10 05:04] LABS: CREATININE 4.33 mg/dL (0.7-1.3)
[2020-03-10] MEDS: CARVEDILOL 12.5 MG TABLET NG SCH (05:13)
[2020-03-10] MEDS: PIPERACILLIN/TAZO/PMX 2.25GM 50 ML IVPB SCH ×3 (05:13→17:27)
[2020-03-10] MEDS ORDERED: SODIUM CHLORIDE 0.9% 1,000ML IVBOLUS ONE (07:00)
[2020-03-10] MEDS: ASPIRIN 81 MG TABLET CHEW PO/NG SCH (08:48)
[2020-03-10] MEDS: ALLOPURINOL 100 MG TABLET NG SCH (08:49)
[2020-03-10] MEDS: ISOSORBIDE DINITRATE 10 MG TABLET NG SCH ×3 (08:49→21:30)
[2020-03-10] MEDS: FENOFIBRATE 145 MG TABLET NG SCH (08:49)
[2020-03-10] MEDS: PANTOPRAZOLE 40 MG IV IVPush SCH (08:50)
[2020-03-10] MEDS: SODIUM CHLORIDE FLUSH 10ML SYR IVF SCH ×2 (08:51→21:30)
[2020-03-10 09:51] LABS: MICROSCOPIC AUTO
[2020-03-10 10:05] LABS: CREATININE,URINE RANDOM 81.5 mg/dL
[2020-03-10] MEDS: AMLODIPINE 10 MG TAB NG SCH (21:00)
[2020-03-10] MEDS: ATORVASTATIN 80 MG TABLET NG SCH (21:30)
[2020-03-11] MEDS: PIPERACILLIN/TAZO/PMX 2.25GM 50 ML IVPB SCH ×5 (00:10→23:07)
[2020-03-11] MEDS: PROPOFOL 100 ML IV PRN ×2 (00:32→05:52)
[2020-03-11] MEDS: HEPARIN 5,000 UNITS/ML, 1ML SQ SCH ×3 (00:43→16:44)
[2020-03-11 04:00] VITALS: BP 107/44
[2020-03-11 05:33] LABS: BASOPHILS % (AUTO) 1 % (0-1); EOSINOPHILS % (AUTO) 8 % (1-7); LYMPHOCYTES % (AUTO) 6 % (22-44); MEAN CORPUSCULAR HEMOGLOBIN 34.1 pg (27.5-34.5); MEAN CORPUSCULAR HGB CONC 32.8 g/dL (33.2-36.2); MONOCYTES % (AUTO) 10 % (2-9); NEUTROPHILS % (AUTO) 76 % (42-75); PLATELET COUNT 169 x10^3/uL (130-400); RED BLOOD COUNT 2.55 x10^6/uL (4.38-5.82); RED CELL DISTRIBUTION WIDTH 14.4 % (9.4-14.8)
[2020-03-11 05:37] LABS: MD NO
[2020-03-11 05:47] LABS: ANION GAP 11 mmol/L (5-15); CALCIUM 8.3 mg/dL (8.5-10.1); CHLORIDE 115 mmol/L (98-107)
[2020-03-11 05:49] LABS: CREATININE 4.72 mg/dL (0.7-1.3)
[2020-03-11] MEDS: PANTOPRAZOLE 40 MG IV IVPush SCH (08:46)
[2020-03-11] MEDS: SODIUM CHLORIDE FLUSH 10ML SYR IVF SCH ×2 (08:46→20:15)
[2020-03-11] MEDS: ISOSORBIDE DINITRATE 10 MG TABLET NG SCH ×3 (08:46→20:15)
[2020-03-11] MEDS: ALLOPURINOL 100 MG TABLET NG SCH (08:47)
[2020-03-11] MEDS: ASPIRIN 81 MG TABLET CHEW PO/NG SCH (08:47)
[2020-03-11] MEDS: FENOFIBRATE 145 MG TABLET NG SCH (08:48)
[2020-03-11] MEDS: AMLODIPINE 10 MG TAB NG SCH (20:15)
[2020-03-11] MEDS: ATORVASTATIN 80 MG TABLET NG SCH (20:16)
[2020-03-12] MEDS: HEPARIN 5,000 UNITS/ML, 1ML SQ SCH ×3 (02:04→17:52)
[2020-03-12 04:00] VITALS: BP 123/89
[2020-03-12 04:34] LABS: BASOPHILS % (AUTO) 1 % (0-1); EOSINOPHILS % (AUTO) 1 % (1-7); LYMPHOCYTES % (AUTO) 3 % (22-44); MEAN CORPUSCULAR HEMOGLOBIN 33.7 pg (27.5-34.5); MEAN CORPUSCULAR HGB CONC 32.5 g/dL (33.2-36.2); MEAN PLATELET VOLUME 10.5 fL (7.4-10.4); MONOCYTES % (AUTO) 7 % (2-9); NEUTROPHILS % (AUTO) 89 % (42-75); PLATELET COUNT 206 x10^3/uL (130-400); RED BLOOD COUNT 2.83 x10^6/uL (4.38-5.82); RED CELL DISTRIBUTION WIDTH 14.5 % (9.4-14.8)
[2020-03-12 04:39] LABS: ANION GAP 13 mmol/L (5-15); CALCIUM 8.5 mg/dL (8.5-10.1); CHLORIDE 114 mmol/L (98-107); CREATININE 4.91 mg/dL (0.7-1.3)
[2020-03-12 05:05] LABS: MD SCAN
[2020-03-12] MEDS: PIPERACILLIN/TAZO/PMX 2.25GM 50 ML IVPB SCH ×4 (05:20→23:22)
[2020-03-12] MEDS ORDERED: FUROSEMIDE 40 MG/4 ML IV ONE ×2 (06:30→10:00)
[2020-03-12] MEDS ORDERED: LINEZOLID PMX 600MG/300ML 300 ML IV SCH (08:00)
[2020-03-12] MEDS: PANTOPRAZOLE 40 MG IV IVPush SCH (10:02)
[2020-03-12] MEDS: ISOSORBIDE DINITRATE 10 MG TABLET NG SCH ×3 (10:03→21:33)
[2020-03-12] MEDS: ALLOPURINOL 100 MG TABLET NG SCH (10:04)
[2020-03-12] MEDS: ASPIRIN 81 MG TABLET CHEW PO/NG SCH (10:04)
[2020-03-12] MEDS: FENOFIBRATE 145 MG TABLET NG SCH (10:04)
[2020-03-12] MEDS: SODIUM CHLORIDE FLUSH 10ML SYR IVF SCH ×2 (10:05→21:29)
[2020-03-12] MEDS: VORICONAZOLE 200 MG TABLET PO SCH (15:34)
[2020-03-12] MEDS: ATORVASTATIN 80 MG TABLET NG SCH (21:30)
[2020-03-12] MEDS: morphine SULFATE 10 MG/ML, 1ML IVPush PRN (21:31)
[2020-03-12] MEDS: AMLODIPINE 10 MG TAB NG SCH (21:33)
[2020-03-13] MEDS: HEPARIN 5,000 UNITS/ML, 1ML SQ SCH ×3 (02:22→17:41)
[2020-03-13] MEDS: VORICONAZOLE 200 MG TABLET PO SCH (02:28)
[2020-03-13 05:00] VITALS: BP 111/59
[2020-03-13] MEDS: PIPERACILLIN/TAZO/PMX 2.25GM 50 ML IVPB SCH ×3 (05:13→21:16)
[2020-03-13 05:22] LABS: BASOPHILS % (AUTO) 1 % (0-1); EOSINOPHILS % (AUTO) 0 % (1-7); LYMPHOCYTES % (AUTO) 6 % (22-44); MD NO; MEAN CORPUSCULAR HEMOGLOBIN 33.9 pg (27.5-34.5); MEAN PLATELET VOLUME 9.7 fL (7.4-10.4); MONOCYTES % (AUTO) 8 % (2-9); NEUTROPHILS % (AUTO) 85 % (42-75); PLATELET COUNT 216 x10^3/uL (130-400); RED BLOOD COUNT 2.67 x10^6/uL (4.38-5.82); RED CELL DISTRIBUTION WIDTH 14.2 % (9.4-14.8)
[2020-03-13 05:35] LABS: ALANINE AMINOTRANSFERASE 56 U/L (12-78); ANION GAP 13 mmol/L (5-15); CALCIUM 8.6 mg/dL (8.5-10.1); CHLORIDE 109 mmol/L (98-107); CREATININE 4.26 mg/dL (0.7-1.3)
[2020-03-13 05:39] LABS: ALKALINE PHOSPHATASE 82 U/L (45-117); BILIRUBIN,TOTAL 1.2 mg/dL (0.2-1.0); TOTAL PROTEIN 6.6 g/dL (6.4-8.2)
[2020-03-13] MEDS: PANTOPRAZOLE 40 MG IV IVPush SCH (09:03)
[2020-03-13] MEDS: ALLOPURINOL 100 MG TABLET NG SCH (09:03)
[2020-03-13] MEDS: SODIUM CHLORIDE FLUSH 10ML SYR IVF SCH ×2 (09:04→21:16)
[2020-03-13] MEDS: ASPIRIN 81 MG TABLET CHEW PO/NG SCH (09:04)
[2020-03-13] MEDS: FENOFIBRATE 145 MG TABLET NG SCH (09:04)
[2020-03-13] MEDS: ISOSORBIDE DINITRATE 10 MG TABLET NG SCH ×3 (09:04→21:00)
[2020-03-13] MEDS: VORICONAZOLE 50 MG TABLET PO SCH (14:42)
[2020-03-13] MEDS ORDERED: PIPERACILLIN/TAZO 0.75 GM in SODIUM CHLORIDE 0.9% 50 ML IVPB PRN (15:00)
[2020-03-13] MEDS: morphine SULFATE 10 MG/ML, 1ML IVPush PRN (19:19)
[2020-03-13] MEDS: AMLODIPINE 10 MG TAB NG SCH (21:00)
[2020-03-13] MEDS: ATORVASTATIN 80 MG TABLET NG SCH (21:00)
[2020-03-14 04:00] VITALS: BP 114/59
[2020-03-14] MEDS: HEPARIN 5,000 UNITS/ML, 1ML SQ SCH ×3 (05:15→20:11)
[2020-03-14] MEDS: VORICONAZOLE 50 MG TABLET PO SCH ×2 (05:16→16:03)
[2020-03-14] MEDS: PIPERACILLIN/TAZO/PMX 2.25GM 50 ML IVPB SCH ×3 (05:16→20:07)
[2020-03-14 05:55] LABS: BASOPHILS % (AUTO) 1 % (0-1); EOSINOPHILS % (AUTO) 1 % (1-7); LYMPHOCYTES % (AUTO) 6 % (22-44); MEAN CORPUSCULAR HEMOGLOBIN 33.7 pg (27.5-34.5); MEAN CORPUSCULAR HGB CONC 32.9 g/dL (33.2-36.2); MONOCYTES % (AUTO) 8 % (2-9); NEUTROPHILS % (AUTO) 85 % (42-75); PLATELET COUNT 230 x10^3/uL (130-400); RED BLOOD COUNT 2.74 x10^6/uL (4.38-5.82); RED CELL DISTRIBUTION WIDTH 14.3 % (9.4-14.8)
[2020-03-14 06:03] LABS: ANION GAP 9 mmol/L (5-15); CALCIUM 8.7 mg/dL (8.5-10.1); CHLORIDE 109 mmol/L (98-107); CREATININE 3.84 mg/dL (0.7-1.3)
[2020-03-14 06:31] LABS: MD SCAN
[2020-03-14] MEDS: ISOSORBIDE DINITRATE 10 MG TABLET NG SCH ×3 (08:43→20:09)
[2020-03-14] MEDS: ASPIRIN 81 MG TABLET CHEW PO/NG SCH (08:43)
[2020-03-14] MEDS: PANTOPRAZOLE 40 MG IV IVPush SCH (08:43)
[2020-03-14] MEDS: ALLOPURINOL 100 MG TABLET NG SCH (08:43)
[2020-03-14] MEDS: SODIUM CHLORIDE FLUSH 10ML SYR IVF SCH ×2 (08:43→20:12)
[2020-03-14] MEDS: FENOFIBRATE 145 MG TABLET NG SCH (08:43)
[2020-03-14] MEDS: ATORVASTATIN 80 MG TABLET NG SCH (20:07)
[2020-03-14] MEDS: AMLODIPINE 10 MG TAB NG SCH (20:12)
[2020-03-15] MEDS: morphine SULFATE 10 MG/ML, 1ML IVPush PRN ×2 (00:30→15:37)
[2020-03-15] MEDS: VORICONAZOLE 50 MG TABLET PO SCH ×2 (03:00→15:37)
[2020-03-15 04:00] VITALS: BP 114/62
[2020-03-15] MEDS: PIPERACILLIN/TAZO/PMX 2.25GM 50 ML IVPB SCH ×3 (04:15→20:23)
[2020-03-15] MEDS: HEPARIN 5,000 UNITS/ML, 1ML SQ SCH ×3 (04:15→20:23)
[2020-03-15 04:46] LABS: BASOPHILS % (AUTO) 1 % (0-1); EOSINOPHILS % (AUTO) 1 % (1-7); LYMPHOCYTES % (AUTO) 4 % (22-44); MEAN CORPUSCULAR HEMOGLOBIN 33.7 pg (27.5-34.5); MEAN CORPUSCULAR HGB CONC 32.6 g/dL (33.2-36.2); MEAN PLATELET VOLUME 10.2 fL (7.4-10.4); MONOCYTES % (AUTO) 5 % (2-9); NEUTROPHILS % (AUTO) 90 % (42-75); PLATELET COUNT 231 x10^3/uL (130-400); RED BLOOD COUNT 2.63 x10^6/uL (4.38-5.82); RED CELL DISTRIBUTION WIDTH 14.5 % (9.4-14.8)
[2020-03-15 04:58] LABS: ANION GAP 10 mmol/L (5-15); CALCIUM 8.2 mg/dL (8.5-10.1); CHLORIDE 107 mmol/L (98-107); CREATININE 5.35 mg/dL (0.7-1.3)
[2020-03-15 06:00] LABS: MD SCAN
[2020-03-15] MEDS: ISOSORBIDE DINITRATE 10 MG TABLET NG SCH ×3 (09:48→20:03)
[2020-03-15] MEDS: SODIUM CHLORIDE FLUSH 10ML SYR IVF SCH ×2 (09:50→20:23)
[2020-03-15] MEDS: PANTOPRAZOLE 40 MG IV IVPush SCH (09:50)
[2020-03-15] MEDS: ALLOPURINOL 100 MG TABLET NG SCH (09:51)
[2020-03-15] MEDS: FENOFIBRATE 145 MG TABLET NG SCH (09:51)
[2020-03-15] MEDS: ASPIRIN 81 MG TABLET CHEW PO/NG SCH (09:51)
[2020-03-15] MEDS: AMLODIPINE 5 MG TABLET NG SCH (20:05)
[2020-03-15] MEDS: ATORVASTATIN 80 MG TABLET NG SCH (20:23)
[2020-03-16] MEDS: VORICONAZOLE 50 MG TABLET PO SCH ×2 (03:20→16:26)
[2020-03-16] MEDS: HEPARIN 5,000 UNITS/ML, 1ML SQ SCH ×3 (03:20→21:27)
[2020-03-16 03:42] VITALS: BP 112/58
[2020-03-16 04:46] LABS: BASOPHILS % (AUTO) 0 % (0-1); EOSINOPHILS % (AUTO) 1 % (1-7); LYMPHOCYTES % (AUTO) 4 % (22-44); MEAN CORPUSCULAR HEMOGLOBIN 33.6 pg (27.5-34.5); MEAN CORPUSCULAR HGB CONC 32.9 g/dL (33.2-36.2); MEAN PLATELET VOLUME 10.2 fL (7.4-10.4); MONOCYTES % (AUTO) 5 % (2-9); NEUTROPHILS % (AUTO) 90 % (42-75); PLATELET COUNT 273 x10^3/uL (130-400); RED BLOOD COUNT 2.75 x10^6/uL (4.38-5.82); RED CELL DISTRIBUTION WIDTH 14.4 % (9.4-14.8)
[2020-03-16] MEDS: PIPERACILLIN/TAZO/PMX 2.25GM 50 ML IVPB SCH ×3 (04:51→21:27)
[2020-03-16 04:56] LABS: MD NO
[2020-03-16] MEDS: ISOSORBIDE DINITRATE 10 MG TABLET NG SCH ×3 (09:05→21:41)
[2020-03-16] MEDS: SODIUM CHLORIDE FLUSH 10ML SYR IVF SCH ×2 (09:16→21:00)
[2020-03-16] MEDS: PANTOPRAZOLE 40 MG IV IVPush SCH (09:16)
[2020-03-16] MEDS: ASPIRIN 81 MG TABLET CHEW PO/NG SCH (09:16)
[2020-03-16] MEDS: ALLOPURINOL 100 MG TABLET NG SCH (09:16)
[2020-03-16] MEDS: FENOFIBRATE 145 MG TABLET NG SCH (09:16)
[2020-03-16 10:05] LABS: ALANINE AMINOTRANSFERASE 43 U/L (12-78); ALBUMIN 2.1 g/dL (3.4-5.0); ANION GAP 11 mmol/L (5-15); CALCIUM 8.6 mg/dL (8.5-10.1); CHLORIDE 108 mmol/L (98-107); CREATININE 4.49 mg/dL (0.7-1.3); TRIGLYCERIDES 128 mg/dL (50-200)
[2020-03-16 10:09] LABS: ALKALINE PHOSPHATASE 151 U/L (45-117); BILIRUBIN,TOTAL 0.8 mg/dL (0.2-1.0); PREALBUMIN 7.1 mg/dL (20.0-40.0); TOTAL PROTEIN 7.3 g/dL (6.4-8.2)
[2020-03-16] MEDS ORDERED: ALBUMIN HUMAN 25% 200 ML ONE (14:31)
[2020-03-16] MEDS: NOREPINEPHRINE 8 MG in SODIUM CHLORIDE 0.9% 242 ML IV PRN (14:34)
[2020-03-16] MEDS: FILTER, DISP 1.2 MICRON FOR TPN/PVN IV PRN (16:27)
[2020-03-16] MEDS ORDERED: FAT EMUL IV SCH ×2 (17:00)
[2020-03-16] MEDS ORDERED: TPN PER PHARMACY MC SCH (17:00)
[2020-03-16] MEDS ORDERED: DEXTROSE 50%, 50ML SYRINGE IVPush PRN (17:00)
[2020-03-16] MEDS ORDERED: DEXTROSE 10% 500 ML IV PRN (17:00)
[2020-03-16] MEDS ORDERED: [UNRECOGNIZED DRUG - OTHER] IV SCH ×2 (17:00)
[2020-03-16] MEDS ORDERED: AMINO ACID 10% IV SCH ×2 (17:00)
[2020-03-16] MEDS ORDERED: SMOF TPN IV SCH ×2 (17:00)
[2020-03-16] MEDS ORDERED: DEXTROSE 70% IV SCH ×2 (17:00)
[2020-03-16] MEDS: INSULIN REGULAR LOW DOSE Q6H X 48HRS SQ-INSULIN SCH (21:00)
[2020-03-16] MEDS: ATORVASTATIN 80 MG TABLET NG SCH (21:27)
[2020-03-16] MEDS: AMLODIPINE 5 MG TABLET NG SCH (21:41)
[2020-03-17] MEDS: INSULIN REGULAR LOW DOSE Q6H X 48HRS SQ-INSULIN SCH ×4 (03:45→21:20)
[2020-03-17 04:00] VITALS: BP 114/62
[2020-03-17 04:08] LABS: BASOPHILS % (AUTO) 0 % (0-1); EOSINOPHILS % (AUTO) 0 % (1-7); LYMPHOCYTES % (AUTO) 4 % (22-44); MEAN CORPUSCULAR HEMOGLOBIN 33.8 pg (27.5-34.5); MEAN PLATELET VOLUME 10.2 fL (7.4-10.4); MONOCYTES % (AUTO) 4 % (2-9); NEUTROPHILS % (AUTO) 91 % (42-75); PLATELET COUNT 247 x10^3/uL (130-400); RED BLOOD COUNT 2.56 x10^6/uL (4.38-5.82); RED CELL DISTRIBUTION WIDTH 14.5 % (9.4-14.8)
[2020-03-17 04:11] LABS: ANION GAP 9 mmol/L (5-15); CALCIUM 8.4 mg/dL (8.5-10.1); CHLORIDE 103 mmol/L (98-107); CREATININE 3.73 mg/dL (0.7-1.3)
[2020-03-17 04:15] LABS: PREALBUMIN 6.9 mg/dL (20.0-40.0)
[2020-03-17 04:19] LABS: MD NO
[2020-03-17] MEDS: PIPERACILLIN/TAZO/PMX 2.25GM 50 ML IVPB SCH ×3 (05:36→21:24)
[2020-03-17] MEDS: VORICONAZOLE 50 MG TABLET PO SCH (05:36)
[2020-03-17] MEDS: HEPARIN 5,000 UNITS/ML, 1ML SQ SCH ×3 (05:37→21:25)
[2020-03-17] MEDS: ALLOPURINOL 100 MG TABLET NG SCH (08:53)
[2020-03-17] MEDS: SODIUM CHLORIDE FLUSH 10ML SYR IVF SCH ×2 (08:54→21:17)
[2020-03-17] MEDS: PANTOPRAZOLE 40 MG IV IVPush SCH (08:54)
[2020-03-17] MEDS: FENOFIBRATE 145 MG TABLET NG SCH (08:54)
[2020-03-17] MEDS: ASPIRIN 81 MG TABLET CHEW PO/NG SCH (08:54)
[2020-03-17] MEDS: ISOSORBIDE DINITRATE 10 MG TABLET NG SCH ×3 (09:00→21:00)
[2020-03-17] MEDS ORDERED: ALBUMIN HUMAN 25% 100 ML ONE (09:07)
[2020-03-17] MEDS: ALBUMIN HUMAN 25% 100 ML IV PRN ×2 (09:14→11:35)
[2020-03-17] MEDS ORDERED: [UNRECOGNIZED DRUG - OTHER] IV SCH (17:00)
[2020-03-17] MEDS ORDERED: DEXTROSE 70% IV SCH (17:00)
[2020-03-17] MEDS ORDERED: AMINO ACID 10% IV SCH (17:00)
[2020-03-17] MEDS ORDERED: FAT EMUL IV SCH (17:00)
[2020-03-17] MEDS ORDERED: SMOF TPN IV SCH (17:00)
[2020-03-17] MEDS: AMLODIPINE 5 MG TABLET NG SCH (21:00)
[2020-03-17] MEDS: ATORVASTATIN 80 MG TABLET NG SCH (21:00)
[2020-03-17] MEDS: morphine SULFATE 10 MG/ML, 1ML IVPush PRN (21:36)
[2020-03-18] MEDS: INSULIN REGULAR LOW DOSE Q6H X 48HRS SQ-INSULIN SCH ×3 (03:00→15:00)
[2020-03-18 04:00] VITALS: BP 98/48
[2020-03-18] MEDS: PIPERACILLIN/TAZO/PMX 2.25GM 50 ML IVPB SCH ×3 (05:08→22:41)
[2020-03-18] MEDS: HEPARIN 5,000 UNITS/ML, 1ML SQ SCH ×3 (05:08→22:42)
[2020-03-18 05:15] LABS: BASOPHILS % (AUTO) 1 % (0-1); EOSINOPHILS % (AUTO) 1 % (1-7); LYMPHOCYTES % (AUTO) 5 % (22-44); MEAN CORPUSCULAR HGB CONC 32.8 g/dL (33.2-36.2); MONOCYTES % (AUTO) 5 % (2-9); NEUTROPHILS % (AUTO) 89 % (42-75); PLATELET COUNT 277 x10^3/uL (130-400); RED BLOOD COUNT 2.76 x10^6/uL (4.38-5.82); RED CELL DISTRIBUTION WIDTH 14.9 % (9.4-14.8)
[2020-03-18 05:27] LABS: ANION GAP 10 mmol/L (5-15); CALCIUM 8.8 mg/dL (8.5-10.1); CHLORIDE 100 mmol/L (98-107); MD NO
[2020-03-18 05:29] LABS: CREATININE 3.97 mg/dL (0.7-1.3)
[2020-03-18] MEDS ORDERED: MIDAZOLAM 1 MG/ML, 5ML ONE (07:55)
[2020-03-18] MEDS ORDERED: PROPOFOL 10 MG/ML, 100ML IV ONE (07:55)
[2020-03-18] MEDS ORDERED: ETOMIDATE 20 MG/10 ML ONE (07:55)
[2020-03-18] MEDS: ISOSORBIDE DINITRATE 10 MG TABLET NG SCH ×3 (09:00→21:00)
[2020-03-18] MEDS: NOREPINEPHRINE 8 MG in SODIUM CHLORIDE 0.9% 242 ML IV PRN ×2 (09:41→16:46)
[2020-03-18] MEDS ORDERED: PHARMACY MAY ADJ FOR RENAL FX MC SCH (10:00)
[2020-03-18] MEDS ORDERED: LIDOCAINE-MPF 1%, 2ML ENDO PRN (10:00)
[2020-03-18] MEDS: SODIUM CHLORIDE FLUSH 10ML SYR IVF SCH ×2 (10:05→21:00)
[2020-03-18] MEDS: PANTOPRAZOLE 40 MG IV IVPush SCH (10:13)
[2020-03-18] MEDS: FENOFIBRATE 145 MG TABLET NG SCH (10:13)
[2020-03-18] MEDS: ALLOPURINOL 100 MG TABLET NG SCH (10:14)
[2020-03-18] MEDS: ASPIRIN 81 MG TABLET CHEW PO/NG SCH (10:14)
--- NOTE | 2020-03-18 14:03 | NUR ---
TF per RD: - When medically appropriate to initiate TF, recommend Vital AF 1.2 @ 60mL/hr (w/ propofol) or 70ml/hr (off propofol). - Do not recommend initating TF until levophed <5mcg/min or <0.06 mcg/kg/min (CBW 71.7) per ASPEN enteral feeding guidelines. Addendum: 03/18/20 at [address] Amended: Links added.
[2020-03-18] MEDS: PROPOFOL 100 ML IV PRN (16:54)
[2020-03-18] MEDS: FILTER, DISP 1.2 MICRON FOR TPN/PVN IV PRN (16:57)
[2020-03-18] MEDS ORDERED: SMOF TPN IV SCH (17:00)
[2020-03-18] MEDS ORDERED: DEXTROSE 70% IV SCH (17:00)
[2020-03-18] MEDS ORDERED: AMINO ACID 10% IV SCH (17:00)
[2020-03-18] MEDS ORDERED: [UNRECOGNIZED DRUG - OTHER] IV SCH (17:00)
[2020-03-18] MEDS ORDERED: FAT EMUL IV SCH (17:00)
[2020-03-18] MEDS: AMLODIPINE 5 MG TABLET NG SCH (21:00)
[2020-03-18] MEDS: ATORVASTATIN 80 MG TABLET NG SCH (22:05)
[2020-03-18] MEDS: NOREPINEPHRINE 32 MG in SODIUM CHLORIDE 0.9% 218 ML IV PRN (22:42)
[2020-03-19 04:00] VITALS: BP 110/49
[2020-03-19] MEDS: PROPOFOL 100 ML IV PRN ×2 (04:30→16:33)
[2020-03-19 05:07] LABS: MEAN CORPUSCULAR HGB CONC 31.6 g/dL (33.2-36.2); MEAN PLATELET VOLUME 10.8 fL (7.4-10.4); PLATELET COUNT 315 x10^3/uL (130-400); RED BLOOD COUNT 2.81 x10^6/uL (4.38-5.82); RED CELL DISTRIBUTION WIDTH 15.3 % (9.4-14.8)
[2020-03-19 05:12] LABS: CHLORIDE 97 mmol/L (98-107)
[2020-03-19 05:17] LABS: ANION GAP 14 mmol/L (5-15); CALCIUM 9.4 mg/dL (8.5-10.1); CREATININE 6.18 mg/dL (0.7-1.3)
[2020-03-19 06:08] LABS: MD YES
[2020-03-19] MEDS: HEPARIN 5,000 UNITS/ML, 1ML SQ SCH ×3 (06:08→22:43)
[2020-03-19] MEDS: PIPERACILLIN/TAZO/PMX 2.25GM 50 ML IVPB SCH (06:08)
[2020-03-19 06:10] LABS: BAND#(MANUAL) 0.98 x10^3/uL; BANDS%(MANUAL) 3 % (0-7); EOS#(MANUAL) 1.96 x10^3/uL (0.0-0.4); EOS% (MANUAL) 6 % (1-7); LYMPH#(MANUAL) 0.98 x10^3/uL (1-3.4); LYMPHS% (MANUAL) 3 % (22-44); METAMYELOCYTES# (MANUAL) 0.33 x10^3/uL (0-0); METAMYELOCYTES% (MANUAL) 1 % (0-1); MONOS#(MANUAL) 1.96 x10^3/uL (0.3-2.7); MONOS% (MANUAL) 6 % (2-9); MYELOCYTES# (MANUAL) 0.98 x10^3/uL (0-0); MYELOCYTES% (MANUAL) 3 % (0-0); SEG#(MANUAL) 25.51 x10^3/uL (1.8-6.8); SEGS% (MANUAL) 78 % (42-75)
[2020-03-19 06:11] LABS: POLYCHROMASIA 1+
[2020-03-19 06:12] LABS: TOXIC GRAN 2+
[2020-03-19 06:13] LABS: ANISOCYTOSIS 1+; HYPOCHROMIA 1+
[2020-03-19 06:14] LABS: <PLATELET ESTIMATE> ADEQUATE; GIANT PLATELETS 1+; LARGE PLATELETS 1+
[2020-03-19] MEDS ORDERED: VANCOMYCIN PER PHARMACY MC PRN (07:00)
[2020-03-19] MEDS ORDERED: PHARMACOKINETIC MONITORING MC PRN (08:00)
[2020-03-19] MEDS ORDERED: VANCOMYCIN 1,400 MG in SODIUM CHLORIDE 0.9% 250 ML IV ONE (08:00)
[2020-03-19] MEDS: MEROPENEM 500 MG in SODIUM CHLORIDE 0.9% 100 ML IV SCH ×2 (08:44→22:46)
[2020-03-19] MEDS: ISOSORBIDE DINITRATE 10 MG TABLET NG SCH ×3 (09:00→21:00)
[2020-03-19] MEDS: METOCLOPRAMIDE 5 MG/ML, 2ML IV SCH ×3 (09:35→22:47)
[2020-03-19] MEDS: PANTOPRAZOLE 40 MG IV IVPush SCH (09:35)
[2020-03-19] MEDS: INSULIN REGULAR LOW DOSE QDAY SQ-INSULIN SCH (09:35)
[2020-03-19] MEDS: ASPIRIN 81 MG TABLET CHEW PO/NG SCH (09:36)
[2020-03-19] MEDS: FENOFIBRATE 145 MG TABLET NG SCH (09:36)
[2020-03-19] MEDS: ALLOPURINOL 100 MG TABLET NG SCH (09:36)
[2020-03-19] MEDS: SODIUM CHLORIDE FLUSH 10ML SYR IVF SCH ×2 (09:37→22:47)
[2020-03-19] MEDS: NOREPINEPHRINE 32 MG in SODIUM CHLORIDE 0.9% 218 ML IV PRN (12:08)
[2020-03-19] MEDS: FILTER, DISP 1.2 MICRON FOR TPN/PVN IV PRN (16:53)
[2020-03-19] MEDS ORDERED: DEXTROSE 70% IV SCH (17:00)
[2020-03-19] MEDS ORDERED: AMINO ACID 10% IV SCH (17:00)
[2020-03-19] MEDS ORDERED: [UNRECOGNIZED DRUG - OTHER] IV SCH (17:00)
[2020-03-19] MEDS ORDERED: FAT EMUL IV SCH (17:00)
[2020-03-19] MEDS ORDERED: SMOF TPN IV SCH (17:00)
[2020-03-19] MEDS ORDERED: ALBUMIN HUMAN 25% 100 ML IV ONE (19:00)
[2020-03-19] MEDS: AMLODIPINE 5 MG TABLET NG SCH (21:00)
[2020-03-19] MEDS: ATORVASTATIN 80 MG TABLET NG SCH (22:43)
[2020-03-20] MEDS: METOCLOPRAMIDE 5 MG/ML, 2ML IV SCH ×4 (03:51→20:12)
[2020-03-20 04:00] VITALS: BP 101/49
[2020-03-20 05:04] LABS: MEAN CORPUSCULAR HEMOGLOBIN 33.7 pg (27.5-34.5); MEAN CORPUSCULAR HGB CONC 32.4 g/dL (33.2-36.2); MEAN PLATELET VOLUME 10.7 fL (7.4-10.4); PLATELET COUNT 241 x10^3/uL (130-400); RED BLOOD COUNT 2.41 x10^6/uL (4.38-5.82); RED CELL DISTRIBUTION WIDTH 14.8 % (9.4-14.8)
[2020-03-20 05:05] LABS: ANION GAP 8 mmol/L (5-15); CHLORIDE 103 mmol/L (98-107)
[2020-03-20 05:06] LABS: CALCIUM 8.7 mg/dL (8.5-10.1); CREATININE 4.18 mg/dL (0.7-1.3)
[2020-03-20 06:02] LABS: MD YES
[2020-03-20 06:03] LABS: BAND#(MANUAL) 0.27 x10^3/uL; BANDS%(MANUAL) 1 % (0-7); BASOS#(MANUAL) 0.27 x10^3/uL (0-0.1); BASOS% (MANUAL) 1 % (0-1); EOS#(MANUAL) 0.27 x10^3/uL (0.0-0.4); EOS% (MANUAL) 1 % (1-7); LYMPH#(MANUAL) 1.88 x10^3/uL (1-3.4); LYMPHS% (MANUAL) 7 % (22-44); MONOS#(MANUAL) 2.15 x10^3/uL (0.3-2.7); MONOS% (MANUAL) 8 % (2-9)
[2020-03-20 06:04] LABS: ANISOCYTOSIS 1+; METAMYELOCYTES# (MANUAL) 0.27 x10^3/uL (0-0); METAMYELOCYTES% (MANUAL) 1 % (0-1); MYELOCYTES# (MANUAL) 0.54 x10^3/uL (0-0); MYELOCYTES% (MANUAL) 2 % (0-0); SEG#(MANUAL) 21.25 x10^3/uL (1.8-6.8); SEGS% (MANUAL) 79 % (42-75)
[2020-03-20 06:05] LABS: HYPOCHROMIA 1+; OVALOCYTES 1+; POLYCHROMASIA 1+
[2020-03-20 06:06] LABS: <PLATELET ESTIMATE> ADEQUATE; TOXIC GRAN 1+
[2020-03-20 06:07] LABS: LARGE PLATELETS 1+
[2020-03-20] MEDS: PANTOPRAZOLE 40 MG IV IVPush SCH (08:57)
[2020-03-20] MEDS: ASPIRIN 81 MG TABLET CHEW PO/NG SCH (08:57)
[2020-03-20] MEDS: SODIUM CHLORIDE FLUSH 10ML SYR IVF SCH ×2 (08:57→20:13)
[2020-03-20] MEDS: ALLOPURINOL 100 MG TABLET NG SCH (08:57)
[2020-03-20] MEDS: HEPARIN 5,000 UNITS/ML, 1ML SQ SCH ×3 (08:57→23:24)
[2020-03-20] MEDS: FENOFIBRATE 145 MG TABLET NG SCH (08:57)
[2020-03-20] MEDS: INSULIN REGULAR LOW DOSE QDAY SQ-INSULIN SCH (08:59)
[2020-03-20] MEDS: MEROPENEM 500 MG in SODIUM CHLORIDE 0.9% 100 ML IV SCH (11:05)
[2020-03-20] MEDS ORDERED: VANCOMYCIN 1,200 MG in SODIUM CHLORIDE 0.9% 250 ML IV ONE (12:00)
[2020-03-20] MEDS: MIDODRINE 5 MG TABLET PO SCH ×2 (16:30→20:13)
[2020-03-20] MEDS ORDERED: FAT EMUL IV SCH (17:00)
[2020-03-20] MEDS ORDERED: [UNRECOGNIZED DRUG - OTHER] IV SCH (17:00)
[2020-03-20] MEDS ORDERED: AMINO ACID 10% IV SCH (17:00)
[2020-03-20] MEDS ORDERED: FILTER, DISP 1.2 MICRON FOR TPN/PVN IV PRN (17:00)
[2020-03-20] MEDS ORDERED: DEXTROSE 70% IV SCH (17:00)
[2020-03-20] MEDS ORDERED: SMOF TPN IV SCH (17:00)
[2020-03-20] MEDS: ATORVASTATIN 80 MG TABLET NG SCH (20:25)
[2020-03-20] MEDS: NOREPINEPHRINE 32 MG in SODIUM CHLORIDE 0.9% 218 ML IV PRN (20:55)
[2020-03-20] MEDS: PROPOFOL 100 ML IV PRN (23:14)
[2020-03-21] MEDS: METOCLOPRAMIDE 5 MG/ML, 2ML IV SCH ×4 (01:16→20:31)
[2020-03-21 03:30] LABS: MEAN CORPUSCULAR HEMOGLOBIN 33.4 pg (27.5-34.5); MEAN CORPUSCULAR HGB CONC 31.9 g/dL (33.2-36.2); MEAN PLATELET VOLUME 10.4 fL (7.4-10.4); PLATELET COUNT 297 x10^3/uL (130-400); RED BLOOD COUNT 2.41 x10^6/uL (4.38-5.82); RED CELL DISTRIBUTION WIDTH 15.6 % (9.4-14.8)
[2020-03-21 03:33] LABS: ANION GAP 11 mmol/L (5-15); CALCIUM 8.4 mg/dL (8.5-10.1); CHLORIDE 100 mmol/L (98-107); CREATININE 6.07 mg/dL (0.7-1.3); TRIGLYCERIDES 142 mg/dL (50-200)
[2020-03-21 04:00] VITALS: BP 112/55
[2020-03-21 04:21] LABS: MD YES
[2020-03-21 04:26] LABS: BAND#(MANUAL) 0.25 x10^3/uL; BANDS%(MANUAL) 1 % (0-7); EOS#(MANUAL) 0.49 x10^3/uL (0.0-0.4); EOS% (MANUAL) 2 % (1-7); LYMPH#(MANUAL) 1.72 x10^3/uL (1-3.4); LYMPHS% (MANUAL) 7 % (22-44); METAMYELOCYTES# (MANUAL) 0.25 x10^3/uL (0-0); METAMYELOCYTES% (MANUAL) 1 % (0-1); MONOS#(MANUAL) 1.23 x10^3/uL (0.3-2.7); MONOS% (MANUAL) 5 % (2-9); MYELOCYTES# (MANUAL) 0.49 x10^3/uL (0-0); MYELOCYTES% (MANUAL) 2 % (0-0); SEG#(MANUAL) 20.09 x10^3/uL (1.8-6.8); SEGS% (MANUAL) 82 % (42-75)
[2020-03-21 04:27] LABS: <PLATELET ESTIMATE> ADEQUATE; ANISOCYTOSIS 1+; LARGE PLATELETS 1+; POLYCHROMASIA 1+
[2020-03-21] MEDS ORDERED: MAGNESIUM SULFATE PMX 2GM/50ML 50 ML IV ONE (06:30)
[2020-03-21 06:44] LABS: MICROSCOPIC INDICATED
[2020-03-21] MEDS: INSULIN REGULAR LOW DOSE QDAY SQ-INSULIN SCH (07:30)
[2020-03-21] MEDS: FENOFIBRATE 145 MG TABLET NG SCH (08:31)
[2020-03-21] MEDS: ASPIRIN 81 MG TABLET CHEW PO/NG SCH (08:31)
[2020-03-21] MEDS: MIDODRINE 5 MG TABLET PO SCH ×3 (08:32→20:31)
[2020-03-21] MEDS: PANTOPRAZOLE 40 MG IV IVPush SCH (08:33)
[2020-03-21] MEDS: ALLOPURINOL 100 MG TABLET NG SCH (08:33)
[2020-03-21] MEDS: HEPARIN 5,000 UNITS/ML, 1ML SQ SCH ×2 (08:34→15:57)
[2020-03-21] MEDS: SODIUM CHLORIDE FLUSH 10ML SYR IVF SCH ×2 (08:35→20:31)
[2020-03-21] MEDS ORDERED: SMOF TPN IV SCH ×2 (11:00→17:00)
[2020-03-21] MEDS ORDERED: DEXTROSE 70% IV SCH ×2 (11:00→17:00)
[2020-03-21] MEDS ORDERED: [UNRECOGNIZED DRUG - OTHER] IV SCH ×2 (11:00→17:00)
[2020-03-21] MEDS ORDERED: FAT EMUL IV SCH ×2 (11:00→17:00)
[2020-03-21] MEDS ORDERED: AMINO ACID 10% IV SCH ×2 (11:00→17:00)
[2020-03-21] MEDS: MEROPENEM 500 MG in SODIUM CHLORIDE 0.9% 100 ML IV SCH (15:56)
[2020-03-21] MEDS: NOREPINEPHRINE 32 MG in SODIUM CHLORIDE 0.9% 218 ML IV PRN (16:30)
[2020-03-21] MEDS ORDERED: FILTER, DISP 1.2 MICRON FOR TPN/PVN IV PRN (17:00)
[2020-03-21] MEDS: ATORVASTATIN 80 MG TABLET NG SCH (20:31)
[2020-03-22] MEDS: HEPARIN 5,000 UNITS/ML, 1ML SQ SCH ×3 (00:38→16:51)
[2020-03-22] MEDS: METOCLOPRAMIDE 5 MG/ML, 2ML IV SCH ×4 (03:23→21:01)
[2020-03-22 04:00] VITALS: BP 110/57
[2020-03-22 04:33] LABS: MEAN CORPUSCULAR HEMOGLOBIN 33.7 pg (27.5-34.5); MEAN CORPUSCULAR HGB CONC 31.8 g/dL (33.2-36.2); MEAN PLATELET VOLUME 10.8 fL (7.4-10.4); PLATELET COUNT 287 x10^3/uL (130-400); RED CELL DISTRIBUTION WIDTH 15.9 % (9.4-14.8)
[2020-03-22 04:38] LABS: HCT (SEDRATE) 24.4 % (39.2-51.8)
[2020-03-22 04:43] LABS: ALANINE AMINOTRANSFERASE 136 U/L (12-78); ALBUMIN 2.3 g/dL (3.4-5.0); ANION GAP 12 mmol/L (5-15); CHLORIDE 100 mmol/L (98-107); CREATININE 7.71 mg/dL (0.7-1.3)
[2020-03-22 04:50] LABS: ALKALINE PHOSPHATASE 178 U/L (45-117); BILIRUBIN,TOTAL 0.7 mg/dL (0.2-1.0); PREALBUMIN 9.9 mg/dL (20.0-40.0)
[2020-03-22 05:44] LABS: MD YES
[2020-03-22 05:45] LABS: EOS#(MANUAL) 0.29 x10^3/uL (0.0-0.4); EOS% (MANUAL) 1 % (1-7)
[2020-03-22 05:46] LABS: BAND#(MANUAL) 1.14 x10^3/uL; BANDS%(MANUAL) 4 % (0-7); LYMPH#(MANUAL) 1.43 x10^3/uL (1-3.4); LYMPHS% (MANUAL) 5 % (22-44); METAMYELOCYTES# (MANUAL) 0.86 x10^3/uL (0-0); METAMYELOCYTES% (MANUAL) 3 % (0-1); MONOS#(MANUAL) 0.86 x10^3/uL (0.3-2.7); MONOS% (MANUAL) 3 % (2-9); SEG#(MANUAL) 23.94 x10^3/uL (1.8-6.8); SEGS% (MANUAL) 84 % (42-75)
[2020-03-22 05:47] LABS: ANISOCYTOSIS 1+; POLYCHROMASIA 1+
[2020-03-22 05:48] LABS: <PLATELET ESTIMATE> ADEQUATE; LARGE PLATELETS 1+
[2020-03-22] MEDS: ALBUMIN HUMAN 25% 100 ML IV PRN (08:49)
[2020-03-22] MEDS ORDERED: INSULIN REGULAR LOW DOSE QDAY SQ-INSULIN SCH (09:00)
[2020-03-22] MEDS: FENOFIBRATE 145 MG TABLET NG SCH (09:00)
[2020-03-22] MEDS: ALLOPURINOL 100 MG TABLET NG SCH (09:45)
[2020-03-22] MEDS: PANTOPRAZOLE 40 MG IV IVPush SCH (09:45)
[2020-03-22] MEDS: SODIUM CHLORIDE FLUSH 10ML SYR IVF SCH ×2 (09:45→21:01)
[2020-03-22] MEDS: ASPIRIN 81 MG TABLET CHEW PO/NG SCH (09:45)
[2020-03-22] MEDS: MIDODRINE 5 MG TABLET PO SCH ×3 (09:46→21:01)
[2020-03-22] MEDS: ALBUMIN HUMAN 25% 50 ML IV PRN ×2 (10:01→10:45)
[2020-03-22] MEDS ORDERED: ALBUTEROL SULFATE 2.5MG/0.5ML ONE (11:44)
[2020-03-22] MEDS: NOREPINEPHRINE 32 MG in SODIUM CHLORIDE 0.9% 218 ML IV PRN (13:18)
[2020-03-22] MEDS: MEROPENEM 500 MG in SODIUM CHLORIDE 0.9% 100 ML IV SCH (17:00)
[2020-03-22] MEDS: ATORVASTATIN 80 MG TABLET NG SCH (21:01)
[2020-03-23] MEDS: HEPARIN 5,000 UNITS/ML, 1ML SQ SCH ×2 (00:02→08:40)
[2020-03-23] MEDS: NOREPINEPHRINE 32 MG in SODIUM CHLORIDE 0.9% 218 ML IV PRN ×2 (00:40→08:44)
[2020-03-23] MEDS: METOCLOPRAMIDE 5 MG/ML, 2ML IV SCH ×2 (02:32→08:40)
[2020-03-23] MEDS: VASOPRESSIN 20 UNIT in SODIUM CHLORIDE 0.9% 99 ML IV PRN ×2 (04:09→11:17)
[2020-03-23] MEDS ORDERED: EPINEPHRINE 10 MG in SODIUM CHLORIDE 0.9% 240 ML IV PRN (04:30)
[2020-03-23 07:44] LABS: MEAN CORPUSCULAR HEMOGLOBIN 33.8 pg (27.5-34.5); MEAN CORPUSCULAR HGB CONC 30.5 g/dL (33.2-36.2); MEAN PLATELET VOLUME 11.7 fL (7.4-10.4); PLATELET COUNT 224 x10^3/uL (130-400); RED BLOOD COUNT 2.21 x10^6/uL (4.38-5.82); RED CELL DISTRIBUTION WIDTH 16.3 % (9.4-14.8)
[2020-03-23 07:49] LABS: CALCIUM 8.5 mg/dL (8.5-10.1); CHLORIDE 101 mmol/L (98-107); CREATININE 6.28 mg/dL (0.7-1.3)
[2020-03-23 07:57] LABS: ANION GAP 16 mmol/L (5-15)
[2020-03-23 08:26] LABS: MD YES
[2020-03-23 08:28] LABS: BAND#(MANUAL) 3.14 x10^3/uL; BANDS%(MANUAL) 8 % (0-7); BASOS#(MANUAL) 0.39 x10^3/uL (0-0.1); BASOS% (MANUAL) 1 % (0-1); LYMPH#(MANUAL) 2.36 x10^3/uL (1-3.4); LYMPHS% (MANUAL) 6 % (22-44); METAMYELOCYTES# (MANUAL) 1.57 x10^3/uL (0-0); METAMYELOCYTES% (MANUAL) 4 % (0-1); MYELOCYTES# (MANUAL) 0.79 x10^3/uL (0-0); MYELOCYTES% (MANUAL) 2 % (0-0)
[2020-03-23 08:29] LABS: MONOS#(MANUAL) 1.57 x10^3/uL (0.3-2.7); MONOS% (MANUAL) 4 % (2-9); PMNS WITH VACUOLES 1+; SEG#(MANUAL) 29.48 x10^3/uL (1.8-6.8); SEGS% (MANUAL) 75 % (42-75)
[2020-03-23 08:30] LABS: <PLATELET ESTIMATE> ADEQUATE; ANISOCYTOSIS 1+; LARGE PLATELETS 1+; POLYCHROMASIA 1+; TOXIC GRAN 1+
[2020-03-23] MEDS: FENOFIBRATE 145 MG TABLET NG SCH (08:41)
[2020-03-23] MEDS: ASPIRIN 81 MG TABLET CHEW PO/NG SCH (08:41)
[2020-03-23] MEDS: ALLOPURINOL 100 MG TABLET NG SCH (08:41)
[2020-03-23] MEDS: PANTOPRAZOLE 40 MG IV IVPush SCH (08:41)
[2020-03-23] MEDS: MIDODRINE 5 MG TABLET PO SCH (08:42)
[2020-03-23] MEDS: SODIUM CHLORIDE FLUSH 10ML SYR IVF SCH (08:43)
[2020-03-23] MEDS ORDERED: SODIUM BICARB 8.4%, 50ML SYRINGE IVPush STA (12:31)
[2020-03-23] MEDS ORDERED: SODIUM BICARB 8.4%, 50ML SYRINGE ONE (12:33)
[2020-03-23] MEDS ORDERED: SODIUM BICARB 8.4%, 50ML SYRINGE IVPush ONE (13:00)
== END 2020-03-23 12:53 | DRG 870 ==
LOC: ED 19:39 → EDIP 22:02 → 3N 22:36 → CCU 03-09 06:37
PROVIDERS: ADMIT Internal Medicine; ATTEND Internal Medicine
PROC: 0BH17EZ Insertion of Endotracheal Airway into Trachea, Via Natural or Artificial Opening (ICD-10-PCS; 2020-03-05)
PROC: 5A12012 Performance of Cardiac Output, Single, Manual (ICD-10-PCS; 2020-03-05)
PROC: 0FC98ZZ Extirpation of Matter from Common Bile Duct, Via Natural or Artificial Opening Endoscopic (ICD-10-PCS; 2020-03-08)
PROC: 0F798DZ Dilation of Common Bile Duct with Intraluminal Device, Via Natural or Artificial Opening Endoscopic (ICD-10-PCS; 2020-03-08)
PROC: 02HV33Z Insertion of Infusion Device into Superior Vena Cava, Percutaneous Approach (ICD-10-PCS; principal; 2020-03-09)
PROC: 06HY33Z Insertion of Infusion Device into Lower Vein, Percutaneous Approach (ICD-10-PCS; 2020-03-09)
PROC: 5A1945Z Respiratory Ventilation, 24-96 Consecutive Hours (ICD-10-PCS; 2020-03-09)
PROC: 0BH17EZ Insertion of Endotracheal Airway into Trachea, Via Natural or Artificial Opening (ICD-10-PCS; 2020-03-10)
PROC: 0T9B30Z Drainage of Bladder with Drainage Device, Percutaneous Approach (ICD-10-PCS; 2020-03-10)
PROC: 02HV33Z Insertion of Infusion Device into Superior Vena Cava, Percutaneous Approach (ICD-10-PCS; 2020-03-12)
PROC: B5181ZA Fluoroscopy of Superior Vena Cava using Low Osmolar Contrast, Guidance (ICD-10-PCS; 2020-03-12)
PROC: 5A1955Z Respiratory Ventilation, Greater than 96 Consecutive Hours (ICD-10-PCS; 2020-03-18)
PROC: 5A09557 Assistance with Respiratory Ventilation, Greater than 96 Consecutive Hours, Continuous Positive Airway Pressure (ICD-10-PCS; 2020-03-18)
DX: A41.9 Sepsis, unspecified organism (principal); G93.41 Metabolic encephalopathy; I26.99 Other pulmonary embolism without acute cor pulmonale; I46.9 Cardiac arrest, cause unspecified; J18.9 Pneumonia, unspecified organism; J96.01 Acute respiratory failure with hypoxia; K85.10 Biliary acute pancreatitis without necrosis or infection; N17.0 Acute kidney failure with tubular necrosis; R65.21 Severe sepsis with septic shock; B17.9 Acute viral hepatitis, unspecified; B44.9 Aspergillosis, unspecified; E87.2 Acidosis; I13.2 Hypertensive heart and chronic kidney disease with heart failure and with stage 5 chronic kidney disease, or end stage renal disease; I24.8 Other forms of acute ischemic heart disease; I50.42 Chronic combined systolic (congestive) and diastolic (congestive) heart failure; J98.11 Atelectasis; K80.62 Calculus of gallbladder and bile duct with acute cholecystitis without obstruction; N18.5 Chronic kidney disease, stage 5; Z99.11 Dependence on respirator [ventilator] status; D53.9 Nutritional anemia, unspecified; E78.5 Hyperlipidemia, unspecified; E87.5 Hyperkalemia; E88.09 Other disorders of plasma-protein metabolism, not elsewhere classified; H91.90 Unspecified hearing loss, unspecified ear; I08.0 Rheumatic disorders of both mitral and aortic valves; I25.10 Atherosclerotic heart disease of native coronary artery without angina pectoris; I25.5 Ischemic cardiomyopathy; I49.3 Ventricular premature depolarization; I70.8 Atherosclerosis of other arteries; I71.4 Abdominal aortic aneurysm, without rupture; I73.9 Peripheral vascular disease, unspecified; Z20.828 Contact with and (suspected) exposure to other viral communicable diseases; J84.112 Idiopathic pulmonary fibrosis; M1A.9XX0 Chronic gout, unspecified, without tophus (tophi); Z51.5 Encounter for palliative care; Z66 Do not resuscitate; Z86.19 Personal history of other infectious and parasitic diseases; I25.2 Old myocardial infarction; I69.320 Aphasia following cerebral infarction; Z86.79 Personal history of other diseases of the circulatory system; Z87.891 Personal history of nicotine dependence; Z95.1 Presence of aortocoronary bypass graft; Z99.2 Dependence on renal dialysis; Z79.899 Other long term (current) drug therapy; Z79.891 Long term (current) use of opiate analgesic; Z79.01 Long term (current) use of anticoagulants; Z79.82 Long term (current) use of aspirin
CPT/HCPCS: 36415; 36600; 74328; 77001; 96361; 96374; 96375; 96376; 99285; J3475; J3490; 36556; 36573; 71045; 74181; 76700; 76937; 80048; 80053; 80061; 80074; 80202; 81001; 82570; 82803; 82962; 82977; 83036; 83605; 83690; 83735; 84100; 84134; 84300; 84439; 84443; 84478; 84484; 84550; 85025; 85651; 86140; 86480; 86705; 86706; 86850; 86900; 87040; 87070; 87081; 87086; 87107; 87205; 87305; 87340; 87635; 90935; 92950; 93005; 93306; 94002; 94003; 94640; 94660; C1894; G0378; J0171; J0461; J0610; J0690; J1100; J1170; J1644; J1815; J1940; J2020; J2185; J2250; J2405; J2543; J2704; J2710; J3010; J3370; P9047; Q9967; C1751; C1769; C2625; C9113; J0330; J1642; J2270; J2765; J3420; J7030; J7040; J7050; J7120